=== PATIENT | male | born 1965 | race Caucasian/White ===

== ENCOUNTER 2020-05-21 16:21 | Emergency (ER) | payer MEDICARE, MEDICAID, SELFPAY ==
[2020-05-21 16:27] VITALS: BP 126/87; PULSE 77; RESP 18; TEMP 36.7; O2SAT 99; BMI 20.9
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
[2020-05-21] MEDS: HYDROcodone-acetaminophen 5-325 mg Tablet 2 TAB PO (18:57)
[2020-05-21 20:00] VITALS: BP 108/68; PULSE 78; RESP 17; O2SAT 98
--- NOTE | 2020-05-22 09:44 | DCPLANNER ---
apartment assistant manager had message to schedule a follow up appointment for patient with ortho. apartment assistant manager called the ortho clinic, spoke with Pat, gave clinic patients information. apartment assistant manager was told that patients information would be printed and reviewed. Clinic will call patient with appointment information.
--- NOTE | 2020-05-23 12:57 | DCPLANNER ---
Patient has a follow up appointment scheduled for Tuesday, May 26, [address] at 8:[address] Ricks. Clinic will call patient with appointment information.
--- NOTE | 2020-06-01 07:46 | DCPLANNER ---
Patient had an appointment scheduled for 05.26.20 with ortho - patient did attend appointment.
== END 2020-05-21 20:02 | disposition home or self-care (01) ==
PROVIDERS: Emergency Provider Physician Assistant
DX: S42.035A Nondisplaced fracture of lateral end of left clavicle, initial encounter for closed fracture (principal); V29.9XXA Motorcycle rider (driver) (passenger) injured in unspecified traffic accident, initial encounter
CPT/HCPCS: 12345; 73030; 99282; 99283; L3650

== ENCOUNTER → 2020-06-27 10:31 | Outpatient (BNVA) | payer MEDICARE, MEDICAID, SELFPAY | PROVIDERS: Visit Provider Orthopaedic Surgery | DX: Z47.89 Encounter for other orthopedic aftercare (principal); S42.035D Nondisplaced fracture of lateral end of left clavicle, subsequent encounter for fracture with routine healing; V29.9XXD Motorcycle rider (driver) (passenger) injured in unspecified traffic accident, subsequent encounter | CPT/HCPCS: 73000 ==

== ENCOUNTER → 2020-07-26 10:22 | Outpatient (BNVA) | payer MEDICARE, MEDICAID, SELFPAY | PROVIDERS: Visit Provider Orthopaedic Surgery | DX: S42.035A Nondisplaced fracture of lateral end of left clavicle, initial encounter for closed fracture (principal) | CPT/HCPCS: 73000 ==

== ENCOUNTER → 2020-11-10 09:29 | Outpatient (BNVA) | payer MEDICARE, MEDICAID, SELFPAY | PROVIDERS: Visit Provider Psychiatry & Neurology Psychiatry | DX: F32.9 Major depressive disorder, single episode, unspecified (principal) | CPT/HCPCS: 90792 ==

== ENCOUNTER → 2021-04-19 10:21 | Outpatient (BNVA) | payer MEDICARE, MEDICAID, SELFPAY | PROVIDERS: Visit Provider Psychiatry & Neurology Psychiatry | DX: F32.9 Major depressive disorder, single episode, unspecified (principal); S06.9X9A Unspecified intracranial injury with loss of consciousness of unspecified duration, initial encounter; F10.10 Alcohol abuse, uncomplicated | CPT/HCPCS: 99214 ==

== ENCOUNTER 2022-08-30 19:46 | Inpatient (IN) | payer MEDICARE, MEDICAID, SELFPAY ==
[2022-08-30 19:50] VITALS: BP 123/77; PULSE 97; RESP 30; TEMP 36.5; O2SAT 95
--- NOTE | 2022-08-30 19:57 | ECG_ITS ---
[facility] Test Date: 2022-08-30 Pat Name: Ramesh Carter Department: Room: Gender: Male Hospice Care Consultant: : 1955-11-28 Requested By: Filomena Ordonez Order Number: [id number] Jennifer MD: Abraham Zurita M.D. Measurements Intervals [place] Rate: 99 P: 78 [place]: 139 QRS: 66 QRSD: 81 T: 59 QT: 296 QTc: 381 Interpretive Statements SINUS RHYTHM MODERATE ST DEPRESSION [0.05+ mV ST DEPRESSION] No previous ECG available for comparison Electronically Signed On 08-31-2022 16:40:16 HELICOPTER DISPATCHER by Abraham Zurita M.D. [id number] f
--- NOTE | 2022-08-30 20:08 | XRR_ITS ---
PROCEDURE INFORMATION: Exam: XR Chest Exam date and time: 08/30/2022 8:20 PM Age: 66 years old Clinical indication: Cough and shortness of breath and other: Fluid coming out of trach tube; Additional info: SOB TECHNIQUE: Imaging protocol: Radiologic exam of the chest. Views: 1 view. COMPARISON: CR XR chest 2V* [id number] 10/13/2018 2:37 PM FINDINGS: Tubes, catheters and devices: Tracheostomy tube is stable in position with the tip at the level of the sternoclavicular joints. Lungs: Interval development of ill-defined interstitial and alveolar opacities in the mid and lower lungs bilaterally. Findings are concerning for pneumonia, including atypical organisms. Pleural spaces: No pleural effusion. No pneumothorax. Heart/Mediastinum: The cardiac silhouette and mediastinal contours are unremarkable. Bones/joints: Unremarkable for age. XR/XR chest 1V portable [id number] IMPRESSION: 1. Interval development of ill-defined interstitial and alveolar opacities in the mid and lower lungs bilaterally. Findings are concerning for pneumonia, including atypical organisms. Recommend clinical correlation. Recommend followup chest imaging to insure resolution of these findings. 2. Incidental/nonacute findings are listed in the report.
--- NOTE | 2022-08-30 20:15 | W.ED.SOB ---
HPI - SOB/Dyspnea General: Chief Complaint: Shortness of Breath/Dyspnea Stated Complaint: coughing breathing difficulties Time Seen by Provider: 08/30/22 20:01 Source: patient Mode of arrival: ambulatory Limitations: no limitations History of Present Illness: HPI Narrative: 66-year-old male who has a history of COPD is a longtime smoker and has had a history of a trach states that over the last 2 weeks has been having increasing shortness of breath he is tachypneic here had a cough denies any fever denies any worsening improving factors. Associated symptoms: Deny abdominal pain, chest pain, fever(s), nausea or vomiting Review of Systems Const: Denies: fever(s), chills, body aches or change in appetite Eyes: Denies: blurry vision or eye discomfort ENMT: Denies: throat pain or dental pain Card: Denies: chest pain Resp: Reports: dyspnea and non-productive cough GI: Denies: abdominal pain, nausea, vomiting or diarrhea : Denies: dysuria Musc: Denies: neck pain or back pain Skin/Breast: Denies: rash Neuro: Denies: headache(s) Psych: Denies: depression Gurpreet/Lymph: Denies: easy bruising All/Imm: Denies: urticaria PFSH ED PFSH: Medical History Alcohol abuse MDD (major depressive disorder) Traumatic brain injury Social History Smoking and tobacco status: former smoker Smoking risk assessment/counseling performed?: No Alcohol intake: former Desire information about alcohol rehabilitation?: No Counseling given: No Desire information about substance/drug rehabilitation?: No Counseling given: No Adopted: No Caregiver/support person: No Lives independently: Yes Current occupational status: disabled Current gender identity: Male Physical Exam Const: COMMON NORMALS: patient oriented x3 HENMT: COMMON NORMALS: normocephalic and atraumatic HEAD & SCALP: normocephalic and atraumatic Eye: COMMON NORMALS: Equal, round and reactive pupils present and EOMs intact bilaterally PUPIL: Yes Equal, round and reactive pupils present Neck/C-Spine: COMMON NORMALS: full ROM and supple Chest: COMMONS NORMALS: normal inspection of the chest and normal palpation of entire chest wall Resp: COMMON NORMALS: No retractions and No use of accessory muscles EFFORT & INSPECTION: Yes tachypneic Cardio: COMMON NORMALS: regular rate, regular rhythm and No murmurs present (Cardio) RATE: regular rate RHYTHM: regular rhythm GI: COMMON NORMALS: Normal to inspection, nondistended, normoactive bowel sounds present, Soft to palpation, non-tender and no masses PALPATION: Yes Soft to palpation Extremity: COMMON NORMALS: normal to inspection and full ROM Neuro: COMMON NORMALS: patient oriented x3, moves all extremities and no focal motor deficits Psych: COMMON NORMALS: mental status grossly normal, Normal thought process present and cooperative THOUGHT PROCESS: Normal thought process present Skin: COMMON NORMALS: no rashes or lesions noted and no wounds GENERAL SKIN EXAM: no rashes or lesions noted Course Vital Signs: Vital signs: Vital Signs Temperature 97.7 F 08/30/22 19:50 Pulse Rate 100 08/30/22 21:31 Respiratory Rate 18 08/30/22 21:27 Blood Pressure 133/69 08/30/22 20:31 Pulse Oximetry 93 08/30/22 21:27 Oxygen Delivery Me thod 08/30/22 21:27 MDM - SOB/Dyspnea Medical Decision Making Patient presents here with shortness of breath he does have influenza he also has acute kidney injury likely from dehydration his potassium is normal I spoke to the hospitalist who will admit nephrology is consulted Lab Data 08/30/22 20:30 08/30/22 20:30 Labs/Radiology: Radiology Impressions Chest X-Ray 08/30/22 20:08 IMPRESSION: 1. Interval development of ill-defined interstitial and alveolar opacities in the mid and lower lungs bilaterally. Findings are concerning for pneumonia, including atypical organisms. Recommend clinical correlation. Recommend followup chest imaging to insure resolution of these findings. 2. Incidental/nonacute findings are listed in the report. Laboratory Results WBC 5.8 10^3/uL (4.0-10.0) 08/30/22 20:30 RBC 4.50 10^6/uL (4.1-5.3) 08/30/22 20:30 Hgb 13.1 g/dL (11.7-16.6) 08/30/22 20:30 Hct 39.1 % (42.0-52.0) L 08/30/22 20:30 MCV 86.9 fl (80-94) 08/30/22 20:30 MCH 29.1 pg (28.0-34.0) 08/30/22 20: MCHC 33.5 g/dL (30.0-36.0) 08/30/22 20:30 RDW 14.6 % (12.1-15.1) 08/30/22 20:30 Plt Count 239 10^3/cmm (130-400) 08/30/22 20: MPV 10.8 fL (7.4-10.4) H 08/30/22 20:30 Neut % (Auto) 83.8 % 08/30/22 20: Lymph % (Auto) 5.0 % 08/30/22 20: Toole % (Auto) 9.5 % 08/30/22 20: Eos % (Auto) 0.0 % 08/30/22:30 Baso % (Auto) 0.7 % 08/30/22: Neut # (Auto) 4.86 10^3/uL (1.8-7.7) 08/30/22 20:30 Lymph # (Auto) 0.3 10^3/uL (0.8-4.8) L 08/30/22 20:30 Toole # (Auto) 0.6 10^3/uL (0.2-0.9) 08/30/22 20:30 Eos # (Auto) 0.0 10^3/uL (0.0-0.8) 08/30/22 20:30 Baso # (Auto) 0.0 10^3/uL (0.0-0.1) 08/30/22 20:30 Nucleated RBC % (auto) 0 % 08/30/22: Nucleated RBCs # 0.0 /100WBC 08/30/22 20:30 Sodium 129 mmol/L (136-145) L 08/30/22 20: Potassium 4.5 mmol/L (3.5-5.1) 08/30/22 20:30 Chloride 91 mmol/L (98-107) L 08/30/22 20:30 Carbon Dioxide 18 mmol/L (22-29) L 08/30/22 20: Anion Gap 24.5 (5-19) H 08/30/22 20:30 BUN 85 mg/dL (8-23) H* 08/30/22 20:30 Creatinine 6.9 mg/dL (0.7-1.2) H* 08/30/22 20:30 GFR Calculation 8.0 mL/min (90-130) L 08/30/22 20:30 Glucose 124 mg/dL (65-115) H 08/30/22 20:30 Calculated Osmolality 295 mOsm/kg (285-295) 08/30/22 20:30 Calcium 9.2 mg/dL (8.5-10.5) 08/30/22 20:30 Total Bilirubin 0.4 mg/dL (0.15-1.2) 08/30/22 20:30 AST 80 U/L (0-40) H 08/30/22 20:30 ALT 32 U/L (0-41) 08/30/22 20:30 Alkaline Phosphatase 62 U/L (40-130) 08/30/22 20:30 NT-Pro-B Natriuret Pep 1548 pg/mL (0-125) H 08/30/22 20:30 Total Protein 8.2 g/dL (6.6-8.7) 08/30/22 20:30 Albumin 3.1 g/dL (3.5-5.2) L 08/30/22 20:30 Globulin 5.1 g/dL (1.3-4.6) H 08/30/22 20:30 Influenza Type A Ag positive (Negative) H 08/30/22 20:30 Influenza Type B Ag negative (Negative) 08/30/22 20:30 EKG Data EKG 1: I personally reviewed and interpreted this EKG as follows: EKG Interpretation Date: 08/30/22 EKG interpretation time: 19:54 Interpretation: nsr hr [address] or t wave abnormalities qrs 81 qtc 353 Critical Care Time Critical Care Time: Critical Care Time: Yes Total Critical Care Time: 40 Attestation: The high probability of a clinically significant, sudden or life threatening deterioration of the patient's resp system(s) required my full and direct attention, intervention and personal management. The critical care time is as shown. 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
[2022-08-30 20:31] VITALS: BP 133/69; PULSE 90; RESP 26; O2SAT 93
[2022-08-30 20:42] LABS: Basophils % 0.7 %; Hematocrit 39.1 % (42.0-52.0); Hemoglobin 13.1 g/dL (11.7-16.6); Lymphocytes # 0.3 10^3/uL (0.8-4.8); Mean Corpuscular HGB Conc 33.5 g/dL (30.0-36.0); Mean Corpuscular Hemoglobin 29.1 pg (28.0-34.0); Mean Corpuscular Volume 86.9 fl (80-94); Mean Platelet Volume 10.8 fL (7.4-10.4); Monocytes # 0.6 10^3/uL (0.2-0.9); Monocytes % 9.5 %; Neutrophils # 4.86 10^3/uL (1.8-7.7); Neutrophils % 83.8 %; Nucleated Red Blood Cells % 0 %; Platelet Count 239 10^3/cmm (130-400); Red Cell Distribution Width 14.6 % (12.1-15.1); White Blood Count 5.8 10^3/uL (4.0-10.0)
[2022-08-30 20:48] LABS: Influenza A by IFA positive (Negative); Influenza B by IFA negative (Negative)
[2022-08-30 21:11] LABS: Alanine Aminotransferase 32 U/L (0-41); Albumin Level 3.1 g/dL (3.5-5.2); Alkaline Phosphatase 62 U/L (40-130); Anion Gap 24.5 (5-19); Aspartate Amino Transferase 80 U/L (0-40); Calcium 9.2 mg/dL (8.5-10.5); Carbon Dioxide 18 mmol/L (22-29); Chloride 91 mmol/L (98-107); Globulin 5.1 g/dL (1.3-4.6); Glucose 124 mg/dL (65-115); NT Pro B Type Natriuretic Pept 1548 pg/mL (0-125); Osmolality Calculated 295 mOsm/kg (285-295); Potassium 4.5 mmol/L (3.5-5.1); Sodium 129 mmol/L (136-145); Total Bilirubin 0.4 mg/dL (0.15-1.2); Total Protein 8.2 g/dL (6.6-8.7)
[2022-08-30 21:19] LABS: Blood Urea Nitrogen 85 mg/dL (8-23)
[2022-08-30] MEDS: ipratropium-albuterol 3 mL Neb INHALATION (21:25)
[2022-08-30 21:27] VITALS: PULSE 99; RESP 18; O2SAT 93
[2022-08-30 21:31] VITALS: PULSE 100
[2022-08-30 21:36] LABS: Slide Review Slide Review Perform
[2022-08-30] MEDS: sodium chloride 0.9% 1,000 ML 999 ML IV (21:53)
[2022-08-30] MEDS: cefTRIAXone 1,000 MG in sodium chloride 0.9% (plus) 50 ML 100 MG IV (21:54)
[2022-08-30] MEDS: azithromycin 500 MG in sodium chloride 0.9% 250 ML 250 MG IV (22:17)
[2022-08-30 22:18] VITALS: BP 117/97; PULSE 96; RESP 16; O2SAT 94
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
[2022-08-31] VITALS (9 sets, daily range): BP systolic 90–116; BP diastolic 51–73; PULSE 92–101; RESP 16–28; TEMP 36.5–37.7; O2SAT 90–97
[2022-08-31] MEDS: heparin 5,000 unit/mL INJ 1 mL 5000 UNIT SUBCUT ×2 (03:43→15:33)
[2022-08-31] MEDS: linezolid premix 600 MG/300 ML PREMIX 300 MG IV ×2 (03:45→20:09)
[2022-08-31 04:30] LABS: Add Urine Microscopic? YES; Bilirubin Urine Neg (Negative); Blood Urine 3+ (Negative); Glucose Urine UA Norm (Normal); Ketones Urine Negative (Negative); Leukocyte Esterase Urine Negative (Negative); Nitrate Urine Negative (Negative); Protein Urine 3+ (Negative); Specific Gravity, Urine 1.015 (1.005-1.030); Urine Appearance SL Hazy (CLEAR); Urine Color Yellow (Yellow); Urobilinogen Urine Neg (Negative); pH Urine 5 (5-7)
[2022-08-31 04:32] LABS: Add Urine Culture? No; Amorphous Sediment Urine 3+ /hpf; Bacteria Urine TRACE /hpf; RBC Urine 0-4 /hpf (0-2); WBC Urine 0-4 /hpf (0-5)
[2022-08-31] MEDS: piperacillin-tazobactam 3.375 GM in sodium chloride 0.9% (plus) 50 ML IV ×2 (05:06→15:30)
[2022-08-31 05:12] LABS: Creatinine Urine, Random 126 mg/dL (39-259); Potassium, Radom Urine 42 mmol/L; Urine Creatinine 122 mg/dL (39-259); Urine Random Chloride 21 mmol/L; Urine Random Sodium 33 mmol/L
[2022-08-31 05:16] LABS: Urine Protein Random 156 mg/dL
[2022-08-31 05:28] LABS: Microalbum Creatinine Ratio Ur 587 mg/dL (0-20); Microalbumin Random Urine 74 ug/dL (0-20)
[2022-08-31 05:29] LABS: Basophils # 0.1 10^3/uL (0.0-0.1); Basophils % 1.1 %; Hematocrit 34.1 % (42.0-52.0); Hemoglobin 11.6 g/dL (11.7-16.6); Lymphocytes # 0.5 10^3/uL (0.8-4.8); Lymphocytes % 8.5 %; Mean Corpuscular Hemoglobin 29.3 pg (28.0-34.0); Mean Corpuscular Volume 86.1 fl (80-94); Monocytes # 0.4 10^3/uL (0.2-0.9); Monocytes % 7.2 %; Neutrophils # 4.43 10^3/uL (1.8-7.7); Neutrophils % 81.5 %; Nucleated Red Blood Cells % 0 %; Platelet Count 217 10^3/cmm (130-400); Red Blood Count 3.96 10^6/uL (4.1-5.3); Red Cell Distribution Width 14.6 % (12.1-15.1); White Blood Count 5.4 10^3/uL (4.0-10.0)
[2022-08-31 05:47] LABS: Lactic Sepsis W/Reflex 1.5 mmol/L (0.5-2.2)
[2022-08-31 05:59] LABS: Estmated Average Glucose 126
[2022-08-31 06:00] LABS: Procalcitonin 93.51 ng/mL (0-0.5); Thyroid Stimulating Hormone 0.73 uIU/mL (0.27-4.20)
[2022-08-31 06:11] LABS: Alanine Aminotransferase 27 U/L (0-41); Albumin Level 2.7 g/dL (3.5-5.2); Alkaline Phosphatase 56 U/L (40-130); Aspartate Amino Transferase 67 U/L (0-40); Calcium 8.6 mg/dL (8.5-10.5); Carbon Dioxide 16 mmol/L (22-29); Chloride 93 mmol/L (98-107); Globulin 4.3 g/dL (1.3-4.6); Glomerular Filtration Rate 7.9 mL/min (90-130); Glucose 157 mg/dL (65-115); Osmolality Calculated 295 mOsm/kg (285-295); Phosphorus 4.6 mg/dL (2.5-4.5); Sodium 127 mmol/L (136-145); Total Bilirubin 0.4 mg/dL (0.15-1.2)
[2022-08-31 06:16] LABS: Blood Urea Nitrogen 90 mg/dL (8-23)
[2022-08-31 06:34] LABS: Glucose Point of Care 113 mg/dL (70-110)
--- NOTE | 2022-08-31 06:42 | P.CONIM_ITS ---
Providers/Reason For Consult Consulting Physician/Specialty*: Janny Easton DO, telenephrology Reason for Consult*: Acute kidney injury Requesting Physician: Mell Ramirez MD Attending Physician: Mell Ramirez MD History of Present Illness History of Present Illness Ramesh Carter is a 66 year old male presented from home for evaluation of shortness of breath and cough. States he has been sick for 2 weeks, decreased oral intake. Review of Systems Const: Reports: fatigue Resp: Reports: dyspnea, productive cough and other (trach) : Reports: other (no urinary complaints) Medications/Allergies Home Medications Medication Instructions Recorded Confirmed Last Taken Type No Known Home Medications 08/31/22 08/31/22 Unknown History Allergies Allergy/AdvReac Type Severity Reaction Status Date / Time No Known Allergies Allergy Verified 07/17/22 09:33 Current Medications Generic Name Dose Route Start Last Admin Trade Name Freq PRN Reason Stop Dose Admin Heparin Sodium (Porcine) 5,000 unit 08/31/22 03:15 08/31/22 03:43 Heparin 5,000 Unit/Ml Inj 1 Ml SUBCUT 5,000 unit Q12H CORKY Administration Linezolid 600 mg in 300 mls @ 300 mls/hr 08/31/22 03:30 08/31/22 05:05 Zyvox Premix IV Infused Q12H CORKY Infusion Protocol Piperacillin Sod/Tazobactam 50 mls @ 12.5 mls/hr 08/31/22 03:30 08/31/22 05:06 Sod 3.375 gm/ Sodium Chloride IV 12.5 mls/hr Q12H CORKY Administration Protocol PFSH Acute PFSH: Medical History Alcohol abuse MDD (major depressive disorder) Traumatic brain injury Social History Smoking and tobacco status: former smoker Smoking risk assessment/counseling performed?: No Alcohol intake: former Desire information about alcohol rehabilitation?: No Counseling given: No Desire information about substance/drug rehabilitation?: No Counseling given: No Adopted: No Caregiver/support person: No Lives independently: Yes Current occupational status: disabled Current gender identity: Male Vitals/I&O/Wt Last Vital Signs Temp 99.4 F 08/31/22 01:20 Pulse 95 08/31/22 01:20 Resp 28 H 12/10/22 01:20 BP 111/73 08/31/22 01:20 Pulse Ox 94 08/31/22 01:20 O2 Del Method 08/31/22 00:46 08/30/22 08/30/22 08/31/22 14:59 22:59 06:59 Intake Total 2200 / 2200 Balance 2200 / 2200 Weight last 48 hrs Weight 61.235 kg Physical Exam Const: COMMON NORMALS: alert; negative for well nourished NUTRITIONAL APPEARANCE: thin Neck/C-Spine: OTHER: + trach Extremity: GENERAL: No edema Neuro: SENSORIUM/ORIENTATION: Yes alert Urinary Catheter Management: Wan: Cath Placed During This Visit: yes Reason for Continuing Indwelling Catheter: Acute Urinary Retention or Obstruction Urinary Catheter Date of Insertion: 08/31/22 Urinary Catheter Time of Insertion: 03:55 Data 08/31/22 05:16 08/31/22 05:16 Other Labs: CK 1590 FeNa < 1% Ca 8.6, albumin 2.7, Edson Ca 9.8, phos 4.6 Micro: Microbiology 08/31/22 04:00 Legionella Urinary Antigen - Final Urine Catheterized 08/30/22 21:32 Blood Culture - Preliminary Blood SPECIMEN COLLECTED 08/30/22 21:39 Blood Culture - Preliminary Blood SPECIMEN COLLECTED CXR: Radiologist's impression: Interval development of ill-defined interstitial and alveolar opacities in the mid and lower lungs bilaterally. Findings are concerning for pneumonia, including atypical organisms. Recommend clinical correlation.Recommend followup chest imaging to insure resolution of these findings. ? Other data: written and verbal consent obtained for telemedicine visit Seen via telemedicine with assistance of RN at bedside A&P Assessment and plan (1) Acute kidney injury: Plan 1. Acute kidney injury: volume depletion, mild rhabdomyolysis. Baseline renal function not available 2. Influenza, pneumonia 3. Hypovolemic hyponatremia 4. Increase anion gap metabolic acidosis recommend: IVF hydration NSS 100 ml/hr, oral sodium bicarbonate. Renal ult rasound. 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
--- NOTE | 2022-08-31 06:45 | USR_ITS ---
PROCEDURE INFORMATION: Exam: US Retroperitoneal; Complete; Kidneys and Bladder Exam date and time: 08/31/2022 2:59 PM Age: 66 years old Clinical indication: Abnormal findings; Abnormal lab test; Abnormal kidney function lab tests; Additional info: [place] TECHNIQUE: Imaging protocol: Real-time ultrasound of the retroperitoneum with image documentation. Complete exam focused on the kidneys and bladder. COMPARISON: No relevant prior studies available. FINDINGS: Right kidney: Normal. No stones. No hydronephrosis. Left kidney: Normal. No stones. No hydronephrosis. Urinary bladder: Unremarkable. US/US renal BI* [id number] IMPRESSION: Unremarkable kidneys and bladder.
[2022-08-31 07:33] LABS: Creatine Phosphokinase 1590 U/L (39-308)
[2022-08-31 07:59] LABS: CKMB 11.2 ng/mL (0-10.4)
[2022-08-31 08:00] LABS: CKMB Relative Index 0.7 % (0.0-5.3)
[2022-08-31] MEDS: sodium chloride 0.9% 1,000 ML 100 ML IV (09:09)
--- NOTE | 2022-08-31 09:57 | PM.PN ---
Subjective Subjective: Patient endorses shortness of breath and cough. Endorses generalized malaise, fatigue, and weakness. Denies abdominal pain, nausea or emesis. Medications: Reviewed: Yes Vitals/I&O/Wt Last Vital Signs Temp 97.7 F 08/31/22 08:00 Pulse 94 08/31/22 08:00 Resp 22 H 08/31/22 08:00 BP 97/54 08/31/22 08:00 Pulse Ox 97 08/31/22 08:00 O2 Del Method 08/31/22 08:00 08/30/22 08/31/22 08/31/22 22:59 06:59 14:59 Intake Total 2200 / 2200 50 / 50 Balance 2200 / 2200 50 / 50 Weight last 48 hrs Weight 61.235 kg Physical Exam Narrative: General: Patient is awake. Frail appearing. Appears ill. In moderate respiratory distress. Head: Normocephalic. Atraumatic. EOM intact. Neck: No JVD. Tacheostomy. Cardiovascular: No gallops. No murmurs. Tachycardic. Lungs: Tracheostomy. In moderate respiratory distress. Cough present. Bilateral rhonchi. No wheezing. Skin: No jaundice. No rashes. Abdomen: Normal bowel sounds, abdomen soft and nontender. Genito Urinary: Genital exam not performed since complaints not related. Rectal: Rectal exam not performed since no symptoms indicated blood loss. Extremities: No cyanosis or clubbing. Musculoskeletal: Poor muscular development. Neurological: Moves all 4 extremities. No myoclonus. Urinary Catheter Management: Wan: Cath Placed During This Visit: yes Reason for Continuing Indwelling Catheter: Acute Urinary Retention or Obstruction Urinary Catheter Date of Insertion: 08/31/22 Urinary Catheter Time of Insertion: 03:55 Data 08/31/22 05:16 08/31/22 05:16 Micro: Microbiology 08/31/22 04:00 Legionella Urinary Antigen - Final Urine Catheterized 08/30/22 21:32 Blood Culture - Preliminary Blood SPECIMEN COLLECTED 08/30/22 21:39 Blood Culture - Preliminary Blood SPECIMEN COLLECTED A&P Assessment and plan (1) Acute kidney injury: Severe JOSÉ LUIS Avoid nephrotoxins Renally dose medications Nephrology consultation Strict I&Os Renal ultrasound (2) Pneumonia: Bilateral community acquired pneumonia Tracheostomy Continue Zosyn Continue azithromycin Continue Zyvox Follow up MRSA Follow up legionella ag Follow up strep ag (3) Influenza: Droplet precautions Tamiflu dose is currently unavailable (4) Hyponatremia: Continue to monitor (5) Alcohol abuse: Monitor for withdrawal (6) Traumatic brain injury: Mentation seems to be at baseline (7) MDD (major depressive disorder): Continue outpatient treatment Plan DVT ppx: Heparin Code status: Full Code Attestations Medical Necessity Statement*: Patient requires ongoing hospitalization for management of severe JOSÉ LUIS, pneumonia, and flu with expected hospitalization to cross 2 midnights. 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
[2022-08-31] MEDS: ipratropium-albuterol 3 mL Neb INHALATION (11:58)
[2022-08-31] MEDS: sodium bicarbonate 650 mg Tablet PO ×2 (15:33→20:53)
[2022-08-31] MEDS: azithromycin 500 MG in sodium chloride 0.9% 250 ML 250 MG IV (22:25)
[2022-09-01] VITALS (9 sets, daily range): BP systolic 109–132; BP diastolic 70–83; PULSE 78–108; RESP 16–24; TEMP 36.6–37.1; O2SAT 92–96
[2022-09-01] MEDS: heparin 5,000 unit/mL INJ 1 mL 5000 UNIT SUBCUT ×2 (03:19→17:29)
[2022-09-01] MEDS: piperacillin-tazobactam 3.375 GM in sodium chloride 0.9% (plus) 50 ML IV ×2 (03:58→17:28)
[2022-09-01 06:13] LABS: Basophils # 0.1 10^3/uL (0.0-0.1); Basophils % 0.8 %; Hematocrit 36.6 % (42.0-52.0); Hemoglobin 11.8 g/dL (11.7-16.6); Lymphocytes # 0.7 10^3/uL (0.8-4.8); Lymphocytes % 7.4 %; Mean Corpuscular HGB Conc 32.2 g/dL (30.0-36.0); Mean Corpuscular Hemoglobin 28.8 pg (28.0-34.0); Mean Corpuscular Volume 89.3 fl (80-94); Mean Platelet Volume 11.7 fL (7.4-10.4); Monocytes # 0.8 10^3/uL (0.2-0.9); Monocytes % 9.4 %; Neutrophils # 7.13 10^3/uL (1.8-7.7); Neutrophils % 81.1 %; Nucleated Red Blood Cells % 0 %; Platelet Count 210 10^3/cmm (130-400); Red Cell Distribution Width 15.2 % (12.1-15.1); White Blood Count 8.8 10^3/uL (4.0-10.0)
[2022-09-01 06:38] LABS: Alanine Aminotransferase 26 U/L (0-41); Albumin Level 2.7 g/dL (3.5-5.2); Alkaline Phosphatase 62 U/L (40-130); Anion Gap 19.6 (5-19); Aspartate Amino Transferase 51 U/L (0-40); Calcium 8.7 mg/dL (8.5-10.5); Carbon Dioxide 18 mmol/L (22-29); Chloride 93 mmol/L (98-107); Globulin 4.4 g/dL (1.3-4.6); Glomerular Filtration Rate 8.4 mL/min (90-130); Glucose 101 mg/dL (65-115); Magnesium 2.3 mg/dL (1.7-2.3); Osmolality Calculated 294 mOsm/kg (285-295); Phosphorus 6.4 mg/dL (2.5-4.5); Potassium 3.6 mmol/L (3.5-5.1); Sodium 127 mmol/L (136-145); Total Bilirubin 0.2 mg/dL (0.15-1.2); Total Protein 7.1 g/dL (6.6-8.7)
[2022-09-01 06:45] LABS: Blood Urea Nitrogen 95 mg/dL (8-23); Creatine Phosphokinase 793 U/L (39-308)
--- NOTE | 2022-09-01 07:10 | P.PN_ITS ---
Subjective Subjective: up walking in room. dean was removed this AM. he has voided since states he wants to be discharged home today Vitals/I&O/Wt Last Vital Signs Temp 97.8 F 09/01/22 04:00 Pulse 93 09/01/22 04:00 Resp 17 09/01/22 04:00 BP 123/80 09/01/22 04:00 Pulse Ox 93 09/01/22 04:00 O2 Del Method 09/01/22 01:23 08/31/22 09/01/22 09/01/22 22:59 06:59 14:59 Intake Total 290 / 1060 Output Total 400 / 400 Balance 290 / 1060 -400 / 660 Weight last 48 hrs Weight 61.235 kg Physical Exam Const: COMMON NORMALS: no acute distress and alert Neck/C-Spine: OTHER: + trach Resp: COMMON NORMALS: normal respiratory effort OTHER: rhonchi Cardio: COMMON NORMALS: regular rate and regular rhythm RATE: regular rate RHYTHM: regular rhythm Extremity: GENERAL: No edema Neuro: SENSORIUM/ORIENTATION: Yes alert Urinary Catheter Management: Dean: Cath Placed During This Visit: yes Reason for Continuing Indwelling Catheter: Acute Urinary Retention or Obstruction Urinary Catheter Date of Insertion: 08/31/22 Urinary Catheter Time of Insertion: 03:55 Data 09/01/22 05:56 09/01/22 05:56 Other Labs: Ca 8.7, phos 6.4, Mg 2.3 CK 793, prior 1590 08/31/22: FeNa < 1%, urinalysis 3+ protein, urine albumin/Cr ratio 587 Ca 8.6, albumin 2.7, Edson Ca 9.8, phos 4.6 Micro: Microbiology 08/30/22 21:32 Blood Culture - Preliminary Blood NEGATIVE TO DATE 08/30/22 21:39 Blood Culture - Preliminary Blood NEGATIVE TO DATE 08/31/22 01:00 Gram Stain - Final Sputum - Expectorated Sputum 08/31/22 04:00 MRSA Culture - Final Nose 08/31/22 04:00 Bacterial Antigens - Final Urine,Clean Catch 08/31/22 04:00 Legionella Urinary Antigen - Final Urine Catheterized CXR: Radiologist's impression: Interval development of ill-defined interstitial and alveolar opacities in the mid and lower lungs bilaterally. Findings are concerning for pneumonia, including atypical organisms. Recommend clinical correlation.Recommend followup chest imaging to insure resolution of these findings. ? Other data: Seen via telemedicine with assistance of RN at bedside A&P Assessment and plan (1) Acute kidney injury: Plan 1. Acute kidney injury: + volume depletion, mild rhabdomyolysis, Ck improving, good urine output, . Baseline renal function not available 2. Influenza, pneumonia 3. Hypovolemic hyponatremia 4. Increase anion gap metabolic acidosis recommend: continue IVF hydration NSS 100 ml/hr, oral sodium bicarbonate. adjust meds eGFR < 15 ml/min. Will proceed with GN workup. I explained to patient that he is not medically stable for discharge. If renal function does not significantly improve, he will need dialysis to survive. 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
[2022-09-01] MEDS: sodium chloride 0.9% 1,000 ML 100 ML IV ×2 (07:45→17:29)
[2022-09-01] MEDS: sodium bicarbonate 650 mg Tablet PO ×4 (07:45→20:41)
[2022-09-01] MEDS: linezolid premix 600 MG/300 ML PREMIX 300 MG IV (07:46)
--- NOTE | 2022-09-01 08:13 | PC.NURSE ---
Pt gave verbal permission to give information to his brother.
--- NOTE | 2022-09-01 11:53 | PM.PN ---
Subjective Subjective: Patient endorses continued coughing. Denies fevers, chills, nausea, or emesis. Medications: Reviewed: Yes Vitals/I&O/Wt Last Vital Signs Temp 98.8 F 09/01/22 08:00 Pulse 94 09/01/22 09:18 Resp 20 H 09/01/22 09:18 BP 124/76 09/01/22 08:00 Pulse Ox 96 09/01/22 09:18 O2 Del Method 09/01/22 09:18 08/31/22 09/01/22 09/01/22 22:59 06:59 14:59 Intake Total 1590 / 2360 Output Total 400 / 400 1150 / 1150 Balance 1590 / 2360 -400 / 1960 -1150 / -1150 Weight last 48 hrs Weight 61.235 kg Physical Exam Narrative: General: Patient is awake. Frail appearing. Appears ill. Head: Normocephalic. Atraumatic. EOM intact. Neck: No JVD. Tacheostomy. Cardiovascular: No gallops. No murmurs. Lungs: Tracheostomy. Cough present. Bilateral rhonchi. No wheezing. Skin: No jaundice. No rashes. Abdomen: Normal bowel sounds, abdomen soft and nontender. Genito Urinary: Genital exam not performed since complaints not related. Rectal: Rectal exam not performed since no symptoms indicated blood loss. Extremities: No cyanosis or clubbing. Musculoskeletal: Poor muscular development. Neurological: Moves all 4 extremities. No myoclonus. Urinary Catheter Management: Wan: Cath Placed During This Visit: yes Reason for Continuing Indwelling Catheter: Acute Urinary Retention or Obstruction Urinary Catheter Date of Insertion: 08/31/22 Urinary Catheter Time of Insertion: 03:55 Data 09/01/22 05:56 09/01/22 05:56 Micro: Microbiology 08/30/22 21:32 Blood Culture - Preliminary Blood NEGATIVE TO DATE 08/30/22 21:39 Blood Culture - Preliminary Blood NEGATIVE TO DATE 08/31/22 01:00 Gram Stain - Final Sputum - Expectorated Sputum 08/31/22 04:00 MRSA Culture - Final Nose 08/31/22 04:00 Bacterial Antigens - Final Urine,Clean Catch A&P Assessment and plan (1) Acute kidney injury: Severe JOSÉ LUIS Mild rhabdomyolysis Avoid nephrotoxins Renally dose medications Nephrology consultation Strict I&Os Renal ultrasound unremarkable Baseline renal function unknown Continue IV fluids Continue sodium bicarb (2) Pneumonia: Bilateral community acquired pneumonia Tracheostomy Continue Zosyn Continue azithromycin Continue Zyvox MRSA negative Urine legionella and strep negative (3) Influenza: Droplet precautions Tamiflu dose is currently unavailable (4) Hyponatremia: Continue to monitor (5) Alcohol abuse: Monitor for withdrawal (6) Traumatic brain injury: Mentation seems to be at baseline (7) MDD (major depressive disorder): Continue outpatient treatment Plan DVT ppx: Heparin Code status: Full Code Attestations Medical Necessity Statement*: Patient requires ongoing hospitalization for management of severe JOSÉ LUIS, pneumonia, and flu. 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
--- NOTE | 2022-09-01 12:14 | PC.NURSE ---
It was reported to this nurse that patient is refusing lab draws at this time.
[2022-09-01 12:40] LABS: Complement C3 131 mg/dL (90-180)
[2022-09-01 12:45] LABS: Hepatitis C Virus Antibody Non-Reactive (Nonreactive)
--- NOTE | 2022-09-01 13:20 | PC.NURSE ---
Patient wanted the dean cath to be removed and was threatening to leave AMA. Dean was removed and this nurse persuaded patient to stay. Dr. Mcpherson was informed of dean removal.
[2022-09-01] MEDS: ipratropium-albuterol 3 mL Neb INHALATION (13:59)
[2022-09-01] MEDS: linezolid premix 600 MG/300 ML PREMIX 150 MG IV (20:27)
[2022-09-01] MEDS: azithromycin 500 MG in sodium chloride 0.9% 250 ML 250 MG IV (22:46)
[2022-09-02] VITALS (10 sets, daily range): BP systolic 117–156; BP diastolic 74–97; PULSE 58–93; RESP 14–24; TEMP 36.4–37.2; O2SAT 90–99
[2022-09-02 02:58] LABS: Alanine Aminotransferase 25 U/L (0-41); Albumin Level 2.9 g/dL (3.5-5.2); Alkaline Phosphatase 77 U/L (40-130); Anion Gap 18.7 (5-19); Aspartate Amino Transferase 40 U/L (0-40); Calcium 8.7 mg/dL (8.5-10.5); Carbon Dioxide 19 mmol/L (22-29); Chloride 101 mmol/L (98-107); Globulin 4.2 g/dL (1.3-4.6); Glomerular Filtration Rate 10.8 mL/min (90-130); Glucose 111 mg/dL (65-115); Osmolality Calculated 307 mOsm/kg (285-295); Potassium 3.7 mmol/L (3.5-5.1); Sodium 135 mmol/L (136-145); Total Bilirubin 0.2 mg/dL (0.15-1.2); Total Protein 7.1 g/dL (6.6-8.7)
[2022-09-02] MEDS: heparin 5,000 unit/mL INJ 1 mL 5000 UNIT SUBCUT ×2 (03:04→14:47)
[2022-09-02 03:06] LABS: Blood Urea Nitrogen 87 mg/dL (6-20); Creatine Phosphokinase 386 U/L (39-308)
[2022-09-02] MEDS: sodium chloride 0.9% 1,000 ML 100 ML IV ×2 (03:07→23:05)
[2022-09-02] MEDS: piperacillin-tazobactam 3.375 GM in sodium chloride 0.9% (plus) 50 ML IV ×2 (03:55→14:47)
[2022-09-02 04:06] LABS: CKMB 9.8 ng/mL (0-10.4); CKMB Relative Index 2.5 % (0.0-5.3)
[2022-09-02] MEDS: linezolid premix 600 MG/300 ML PREMIX 150 MG IV ×2 (08:44→20:32)
--- NOTE | 2022-09-02 10:10 | CTR_ITS ---
PROCEDURE INFORMATION: Exam: CT Chest Without Contrast; Diagnostic Exam date and time: 09/02/2022 10:49 AM Age: 56 years old Clinical indication: Fever and shortness of breath; Prior surgery; Surgery type: Trach; Additional info: Stap pna TECHNIQUE: Imaging protocol: Diagnostic computed tomography of the chest without contrast. Radiation optimization: All CT scans at this facility use at least one of these dose optimization techniques: automated exposure control; mA and/or kV adjustment per patient size (includes targeted exams where dose is matched to clinical indication); or iterative reconstruction. COMPARISON: CR XR chest 1V portable [id number] 08/30/2022 8:20 PM RADIATION DOSE METRICS: Total DLP (mGy-cm): 271.85 FINDINGS: Trachea: Tracheostomy is in place. Lungs: Debris is seen within the trachea and mainstem bronchi. Consolidative and ground-glass opacities are seen in all lobes of the lungs bilaterally with some associated tree-in-bud nodularity. Pleural spaces: Unremarkable. No pneumothorax. No pleural effusion. Heart: Unremarkable. No cardiomegaly. No pericardial effusion. Coronary arteries: Coronary artery calcification is absent. Lymph nodes: Unremarkable. No enlarged lymph nodes. Vasculature: Unremarkable. No aortic aneurysm. Bones/joints: Remote compression deformity of a midthoracic vertebral body. Soft tissues: Unremarkable. CT/CT chest wo con [id number] IMPRESSION: Multilobar aspiration and/or pneumonia. Debris within the trachea and mainstem bronchi suggests at least some component of aspiration.
--- NOTE | 2022-09-02 10:48 | P.PN_ITS ---
Subjective Subjective: Denies any new complaints Medications: Reviewed: Yes Vitals/I&O/Wt Last Vital Signs Temp 98.5 F 09/02/22 07:55 Pulse 81 09/02/22 08:44 Resp 24 H 09/02/22 08:44 BP 117/75 09/02/22 07:55 Pulse Ox 95 09/02/22 08:44 O2 Del Method 09/02/22 08:44 09/01/22 09/02/22 09/02/22 22:59 06:59 14:59 Intake Total 1790 / 2150 963.333 / 3113.333 Balance 1790 / 1000 963.333 / 1963.333 Physical Exam Narrative: Patient is awake and alert Has tracheostomy Lungs clear bilaterally but with both 1 S2 regular rate and rhythm per report No pedal edema Urinary Catheter Management: Wan: Cath Placed During This Visit: yes Reason for Continuing Indwelling Catheter: Acute Urinary Retention or Obstruction Urinary Catheter Date of Insertion: 08/31/22 Urinary Catheter Time of Insertion: 03:55 Data 09/01/22 05:56 09/02/22 02:16 Micro: Microbiology 08/31/22 01:00 Gram Stain - Final Sputum - Expectorated Sputum Sputum Culture - Preliminary Coag positive Staphylococcus A&P Assessment and plan (1) Acute kidney injury: Plan 1. Acute kidney injury: + volume depletion, mild rhabdomyolysis, Ck improving, good urine output, . Baseline renal function not available, creatinine trending down, continue to monitor 2. Influenza, pneumonia 3. Hypovolemic hyponatremia 4. Increase anion gap metabolic acidosis recommend: continue IVF hydration NSS 100 ml/hr, oral sodium bicarbonate. Pending GN workup. I explained to patient that he is not medically stable for discharge today.. Attestations Medical Necessity Statement*: Patient requires ongoing hospitalization for management of severe JOSÉ LUIS, pneumonia, and flu. 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
--- NOTE | 2022-09-02 11:01 | PC.SOCIAL ---
IMM Update pg 2 of IMM updated and reviewed w/ patient. Copy provided and copy dated, initialed and placed in chart.
[2022-09-02 16:14] LABS: Osmolality Urine 305 mOsm/kg (50-1200)
--- NOTE | 2022-09-02 16:20 | PM.PN ---
Subjective Subjective: Patient was seen this morning, denies any fevers, no chills, he is on room air Vitals/I&O/Wt Last Vital Signs Temp 98.5 F 09/02/22 07:55 Pulse 74 09/02/22 14:10 Resp 24 H 09/02/22 08:44 BP 117/75 09/02/22 07:55 Pulse Ox 91 09/02/22 14:10 O2 Del Method 09/02/22 14:10 09/02/22 09/02/22 09/02/22 06:59 14:59 22:59 Intake Total 963.333 / 3113.333 50 / 50 Balance 963.333 / 1963.333 50 / 50 Physical Exam Const: COMMON NORMALS: no acute distress and patient oriented x3 HENMT: COMMON NORMALS: normocephalic HEAD & SCALP: normocephalic Resp: COMMON NORMALS: normal respiratory effort, No retractions and No use of accessory muscles AUSCULTATION: crackles and wheezes Cardio: COMMON NORMALS: regular rate, regular rhythm, S1 normal heart sound present and S2 normal heart sound present RATE: regular rate RHYTHM: regular rhythm HEART SOUNDS: S1 normal heart sound present and S2 normal heart sound present GI: COMMON NORMALS: Normal to inspection, nondistended, normoactive bowel sounds present, Soft to palpation, non-tender, No hepatosplenomegaly present, no masses and no bruits PALPATION: Yes Soft to palpation and Yes No hepatosplenomegaly present Extremity: COMMON NORMALS: no calf tenderness and no pedal edema Neuro: COMMON NORMALS: patient oriented x3 Psych: COMMON NORMALS: mental status grossly normal Urinary Catheter Management: Wan: Cath Placed During This Visit: yes Reason for Continuing Indwelling Catheter: Acute Urinary Retention or Obstruction Urinary Catheter Date of Insertion: 08/31/22 Urinary Catheter Time of Insertion: 03:55 Data 09/01/22 05:56 09/02/22 02:16 Micro: Microbiology 08/31/22 01:00 Gram Stain - Final Sputum - Expectorated Sputum Sputum Culture - Final Staphylococcus aureus A&P Assessment and plan (1) Acute kidney injury: Severe JOSÉ LUIS, creatinine 5.5 Mild rhabdomyolysis Avoid nephrotoxins Renally dose medications Nephrology consultation Strict I&Os Renal ultrasound unremarkable Baseline renal function unknown Continue IV fluids Continue sodium bicarb (2) Pneumonia: Bilateral pneumonia, sputum cultures growing staph species Tracheostomy Continue Zosyn Continue azithromycin Continue Zyvox MRSA negative Urine legionella and strep negative We will order CT of the chest, 1 dose of Solu-Medrol (3) Influenza: Droplet precautions As she remains afebrile, on room air we will hold off on Tamiflu (4) Hyponatremia: Continue to monitor (5) Alcohol abuse: Monitor for withdrawal (6) Traumatic brain injury: Mentation seems to be at baseline (7) MDD (major depressive disorder): Continue outpatient treatment Plan DVT ppx: Heparin Code status: Full Code Plan for today, will consult speech therapy, dysphagia diet, CT of the chest, steroids, continue antibiotic therapy Attestations Medical Necessity Statement*: Patient requires hospitalization for influenza A, pneumonia, acute kidney injury Coding Level of Care Code Acute Harness Tier for [facility]w Diagnoses Acute kidney injury N17.9 Pneumonia J18.9 Influenza J11.1 Hyponatremia E87.1 Alcohol abuse F10.10 Traumatic brain injury S06.9X9A MDD (major depressive disorder) F32.9
[2022-09-02] MEDS: sodium bicarbonate 650 mg Tablet PO (20:33)
[2022-09-02] MEDS: azithromycin 500 MG in sodium chloride 0.9% 250 ML 250 MG IV (23:05)
[2022-09-02 23:45] LABS: Creatinine Urine, Random 72 mg/dL (39-259)
[2022-09-03 00:14] LABS: Urine Protein Random 36 mg/dL
[2022-09-03 02:00] VITALS: PULSE 80; O2SAT 95
[2022-09-03 02:46] LABS: Basophils % 0.4 %; Hematocrit 32.3 % (42.0-52.0); Hemoglobin 10.9 g/dL (11.7-16.6); Lymphocytes # 0.5 10^3/uL (0.8-4.8); Mean Corpuscular HGB Conc 33.7 g/dL (30.0-36.0); Mean Corpuscular Hemoglobin 28.8 pg (28.0-34.0); Mean Corpuscular Volume 85.4 fl (80-94); Mean Platelet Volume 11.3 fL (7.4-10.4); Monocytes # 0.1 10^3/uL (0.2-0.9); Monocytes % 3.5 %; Nucleated Red Blood Cells % 0 %; Platelet Count 237 10^3/cmm (130-400); Red Blood Count 3.78 10^6/uL (4.1-5.3); Red Cell Distribution Width 15.3 % (12.1-15.1); White Blood Count 2.8 10^3/uL (4.0-10.0)
[2022-09-03 03:14] LABS: Alanine Aminotransferase 22 U/L (0-41); Albumin Level 2.6 g/dL (3.5-5.2); Alkaline Phosphatase 63 U/L (40-130); Aspartate Amino Transferase 34 U/L (0-40); Blood Urea Nitrogen 58 mg/dL (6-20); C Reactive Protein 145.1 mg/L (0.0-4.9); Calcium 8.6 mg/dL (8.5-10.5); Carbon Dioxide 18 mmol/L (22-29); Chloride 106 mmol/L (98-107); Globulin 3.9 g/dL (1.3-4.6); Glomerular Filtration Rate 15.1 mL/min (90-130); Glucose 170 mg/dL (65-115); Magnesium 1.9 mg/dL (1.7-2.3); Osmolality Calculated 312 mOsm/kg (285-295); Phosphorus 2.5 mg/dL (2.5-4.5); Sodium 141 mmol/L (136-145); Total Bilirubin 0.2 mg/dL (0.15-1.2); Total Protein 6.5 g/dL (6.6-8.7)
[2022-09-03 03:23] LABS: Procalcitonin 8.01 ng/mL (0-0.5)
[2022-09-03 04:00] VITALS: BP 139/83; PULSE 59; RESP 17; TEMP 36.6; O2SAT 96
[2022-09-03] MEDS: heparin 5,000 unit/mL INJ 1 mL 5000 UNIT SUBCUT (04:02)
[2022-09-03] MEDS: piperacillin-tazobactam 3.375 GM in sodium chloride 0.9% (plus) 50 ML IV (04:03)
[2022-09-03 04:11] LABS: Slide Review Slide Review Perform
--- NOTE | 2022-09-03 07:30 | PC.NURSE ---
Patient left AMA, removed IV prior to patient leaving. Patient signed AMA and this nurse notified physician. Patient refused to stay and wait for physician to see him.
--- NOTE | 2022-09-03 07:55 | PC.NURSE ---
Alerted by [employer] that patient was demanding to have his IV taken out at 0630. I spoke with patient about the need for receiving the rest of his antibiotic; patient wanted to know when the would be in to see him and if he wasn't called and told to come see him right away that he was going to leave. Patient started getting aggressive with his language; he had been pleasant all night and slept a good portion of the night. He had had a small amount of old blood drainage through his trach.
[2022-09-03 11:15] LABS: KAPPA LIGHT CHAIN, FREE, SERUM 136.3 mg/L (3.3-19.4); KAPPA/LAMBDA LIGHT CHAINS FREE 1.12 (0.26-1.65); LAMBDA LIGHT CHAIN, FREE, SERU 121.2 mg/L (5.7-26.3)
[2022-09-03 15:33] LABS: PROTEIN, TOTAL 6.4 g/dL (6.1-8.1)
[2022-09-03 15:54] LABS: Anti-Nuclear Antibody Screen NEGATIVE (NEGATIVE)
[2022-09-04 01:14] LABS: Hepatitis B Surface AG NON-REACTIVE (NON-REACTIVE)
[2022-09-04 14:15] LABS: Glomerular Bsmt Membrane IGG <1.0 AI
[2022-09-04 14:46] LABS: ALBUMIN 2.6 g/dL (3.8-4.8); ALPHA 1 GLOBULIN 0.7 g/dL (0.2-0.3); ALPHA 2 GLOBULIN 1.1 g/dL (0.5-0.9); BETA 1 GLOBULIN 0.4 g/dL (0.4-0.6); BETA 2 GLOBULIN 0.5 g/dL (0.2-0.5); GAMMA GLOBULIN 1.1 g/dL (0.8-1.7)
[2022-09-04 15:10] LABS: Complement Total (CH50) >60 U/mL (31-60)
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
--- NOTE | 2022-09-06 12:36 | PC.SOCIAL ---
Primary Follow Up Dr. Fierro requests that patient follow up with his primary care and have renal function rechecked. His sputum culture was also growing staph, so if still symptomatic, may require additional antibiotic. CM called patient and spoke with family. Patient was sleeping. They will call and schedule patient a follow up appointment with patient's primary care when he wakes up.
[2022-09-06 15:14] LABS: ANCA Screen NEGATIVE (NEGATIVE)
== END 2022-09-03 07:55 | disposition home or self-care (01) | DRG 682 ==
LOC: ER 21:55 → MEDSURG 22:58
PROVIDERS: Internal Medicine; Admitting Provider Internal Medicine; Emergency Provider Emergency Medicine; Visit Provider Family Medicine
DX: N17.9 Acute kidney failure, unspecified (principal); J10.00 Influenza due to other identified influenza virus with unspecified type of pneumonia; E87.1 Hypo-osmolality and hyponatremia; E87.20 Acidosis, unspecified; M62.82 Rhabdomyolysis; F10.10 Alcohol abuse, uncomplicated; Z87.820 Personal history of traumatic brain injury; F32.9 Major depressive disorder, single episode, unspecified; Z93.0 Tracheostomy status; Z87.891 Personal history of nicotine dependence; Z53.29 Procedure and treatment not carried out because of patient's decision for other reasons; B95.8 Unspecified staphylococcus as the cause of diseases classified elsewhere
CPT/HCPCS: 12345; 36415; 36416; 51702; 71045; 71250; 76770; 80053; 80069; 81001; 82044; 82436; 82550; 82553; 82570; 82575; 82595; 82962; 83036; 83520; 83605; 83735; 83880; 83883; 83935; 84100; 84133; 84145; 84155; 84156; 84165; 84300; 84443; 85025; 86036; 86038; 86140; 86160; 86162; 86403; 86803; 87040; 87070; 87077; 87186; 87205; 87340; 87449; 87641; 87804; 92523; 92610; 93005; 94640; 96365; 96367; 96372; 99285; J0456; J0696; J1644; J2020; J2543; J2930; J7030; J7050; Q3014

== ENCOUNTER → 2022-09-17 11:36 | Outpatient (BNVA) | payer MEDICARE, MEDICAID, SELFPAY | PROVIDERS: PCP Family Medicine Adult Medicine; Visit Provider Family Medicine Adult Medicine | DX: N17.9 Acute kidney failure, unspecified (principal); E87.1 Hypo-osmolality and hyponatremia; J18.9 Pneumonia, unspecified organism | CPT/HCPCS: 80053; 85025 ==

== ENCOUNTER → 2023-01-22 13:38 | Outpatient (BNVA) | payer MEDICARE, MEDICAID, SELFPAY | PROVIDERS: PCP Family Medicine Adult Medicine; Visit Provider Family Medicine Adult Medicine | DX: R73.03 Prediabetes (principal); N18.30 Chronic kidney disease, stage 3 unspecified; D63.1 Anemia in chronic kidney disease | CPT/HCPCS: 80053; 83036; 85025 ==

== ENCOUNTER → 2023-10-30 14:40 | Outpatient (BNVA) | payer MEDICARE, MEDICAID, SELFPAY | PROVIDERS: PCP Family Medicine Adult Medicine; Visit Provider Family Medicine Adult Medicine | DX: N18.32 Chronic kidney disease, stage 3b (principal); R79.89 Other specified abnormal findings of blood chemistry; R73.03 Prediabetes; N18.9 Chronic kidney disease, unspecified; D63.1 Anemia in chronic kidney disease; R79.82 Elevated C-reactive protein (CRP) | CPT/HCPCS: 80053; 83036; 84145; 85025; 86140 ==

== ENCOUNTER 2024-01-19 17:09 | Emergency (ER) | payer MEDICARE, MEDICAID, SELFPAY ==
[2024-01-19 17:14] VITALS: BP 99/60; PULSE 107; RESP 16; TEMP 36.4; O2SAT 100
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
--- NOTE | 2024-01-19 17:39 | ECG_ITS ---
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 Measurements Intervals [place] Rate: 101 P: 75 SD: 136 QRS: 73 QRSD: 78 T: 72 QT: 335 QTc: 435 Interpretive Statements SINUS TACHYCARDIA ABNORMAL RHYTHM ECG Compared to ECG 08/30/2022 19:54:57 Sinus rhythm no longer present ST (T wave) deviation no longer present Electronically Signed On 01-19-2024 22:51:52 CDT by Ted Sánchez M.D. [email or web address]
--- NOTE | 2024-01-19 17:39 | XRR_ITS ---
PROCEDURE INFORMATION: Exam: XR Chest Exam date and time: 01/19/2024 5:55 PM Age: 58 years old Clinical indication: Other: Weakness; Prior surgery; Surgery date: 6+ months; Surgery type: Trach TECHNIQUE: Imaging protocol: Radiologic exam of the chest. Views: 1 view. COMPARISON: CT chest [facility] [id number] 09/02/2022 10:49 AM FINDINGS: Tubes, catheters and devices: A tracheostomy tube is in good position. Lungs: Unremarkable. No consolidation or mass. Pleural spaces: Unremarkable. No pleural effusion. No pneumothorax. Heart/Mediastinum: Unremarkable. No cardiomegaly. Bones/joints: A poorly healed left clavicle fracture is noted. XR/XR chest 1V portable [id number] IMPRESSION: No acute findings.
[2024-01-19 17:44] VITALS: BP 141/71; PULSE 107; O2SAT 90
[2024-01-19] MEDS: sodium chloride 0.9% 1,000 ML 999 ML IV (17:52)
[2024-01-19 18:00] LABS: Basophils % 0.4 %; Eosinophils # 0.1 10^3/uL (0.0-0.8); Eosinophils % 1.2 %; Hematocrit 39.9 % (37-53); Lymphocytes # 2.3 10^3/uL (0.8-4.8); Mean Corpuscular HGB Conc 31.6 g/dL (30-55); Mean Corpuscular Hemoglobin 29.6 pg (27-33); Mean Corpuscular Volume 93.7 fl (82-101); Mean Platelet Volume 9.2 fL (7.4-10.4); Monocytes # 0.9 10^3/uL (0.2-0.9); Monocytes % 9.2 %; Neutrophils # 6.45 10^3/uL (1.8-7.7); Neutrophils % 65.8 %; Nucleated Red Blood Cells % 0 %; Platelet Count 400 10^3/cmm (157-399); Red Blood Count 4.26 10^6/uL (3.85-5.65); Red Cell Distribution Width 14.4 % (12.1-15.1); White Blood Count 9.81 10^3/uL (3.29-11.43)
[2024-01-19 18:14] VITALS: BP 128/77; PULSE 96; O2SAT 100
[2024-01-19 18:15] LABS: Add Urine Microscopic? NO; Charge for UA Resulting for Rev
[2024-01-19 18:16] LABS: Troponin(5th) Baseline 12 ng/L (0-15)
[2024-01-19 18:22] LABS: Bilirubin Urine Neg (Negative); Blood Urine Neg (Negative); Glucose Urine UA Norm (Normal); Ketones Urine Negative (Negative); Leukocyte Esterase Urine Negative (Negative); Nitrate Urine Negative (Negative); Protein Urine Neg (Negative); Urine Appearance Clear (CLEAR); Urine Color Light yellow (Yellow); Urobilinogen Urine Norm (Negative); pH Urine 6 (5-7)
[2024-01-19 18:29] LABS: Alanine Aminotransferase 9 U/L (0-41); Alkaline Phosphatase 77 U/L (40-130); Anion Gap 15.7 (5-19); Aspartate Amino Transferase 13 U/L (0-40); Blood Urea Nitrogen 32 mg/dL (6-20); Calcium 8.8 mg/dL (8.5-10.5); Carbon Dioxide 24 mmol/L (22-29); Chloride 104 mmol/L (98-107); Creatinine Clr Calc Pharmacy 47.0805; Globulin 2.9 g/dL (1.3-4.6); Glomerular Filtration Rate 47.9 mL/min (90-130); Glucose 71 mg/dL (65-115); Osmolality Calculated 293 mOsm/kg (285-295); Potassium 4.7 mmol/L (3.5-5.1); Sodium 139 mmol/L (136-145); Thyroid Stimulating Hormone 6.78 uIU/mL (0.27-4.20); Total Bilirubin 0.2 mg/dL (0.15-1.2); Total Protein 6.9 g/dL (6.6-8.7)
[2024-01-19 18:30] VITALS: PULSE 97; O2SAT 100
[2024-01-19 19:20] VITALS: BP 158/109; PULSE 98; RESP 18; O2SAT 92
== END 2024-01-19 19:21 | disposition home or self-care (01) ==
PROVIDERS: Emergency Provider Emergency Medicine; PCP Family Medicine Adult Medicine
DX: E86.0 Dehydration (principal); E11.22 Type 2 diabetes mellitus with diabetic chronic kidney disease; N18.30 Chronic kidney disease, stage 3 unspecified; Z87.891 Personal history of nicotine dependence
CPT/HCPCS: 36415; 71045; 80053; 81003; 83735; 84443; 84484; 85025; 93005; 99285; J7030

== ENCOUNTER → 2024-12-02 13:57 | Outpatient (BNVA) | payer MEDICARE, MEDICAID, SELFPAY | PROVIDERS: PCP Family Medicine; Visit Provider Family Medicine | DX: E11.9 Type 2 diabetes mellitus without complications (principal); E03.9 Hypothyroidism, unspecified | CPT/HCPCS: 80053; 80061; 83036; 84439; 84443; 85025 ==

== ENCOUNTER → 2025-05-04 14:01 | Outpatient (BNVA) | payer MEDICARE, MEDICAID, SELFPAY | PROVIDERS: PCP Family Medicine; Visit Provider Family Medicine | DX: E03.9 Hypothyroidism, unspecified (principal) | CPT/HCPCS: 84443 ==

== ENCOUNTER 2025-06-03 15:36 | Emergency (ER) | payer MEDICARE, MEDICAID, SELFPAY ==
[2025-06-03 15:39] VITALS: BP 124/75; PULSE 100; RESP 19; TEMP 36.8; O2SAT 99; BMI 20.6
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
--- OUTSIDE RECORDS SUMMARY | 2025-06-03 15:44 | XMS_ITS | Encounter Summary ---
Author Organization [facility] Address [address] [facility] Attn: [place] [address] Care Team Providers Care Bark Tanner Name Role Phone Kym Richardson Primary Care Provider [phone] Encounter Details Date Type Department Care Team (Late st Contact Info) Description 10/02/2001 Inpatient Historical Hussain Bradley MD [address] [facility] [address] [place] [address] Social History Tobacco Use Types Packs/Day Years Used Date Smoking Tobacco: Never Assessed Sex and Gender Information Value Date Recorded Sex Assigned at Not on file 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
--- OUTSIDE RECORDS SUMMARY | 2025-06-03 15:44 | XMS_ITS | Encounter Summary ---
Author Organization [facility] Address [address] [place] [address] Care Team Providers Care Pool Installer Name Role Phone Kym Richardson Primary Care Provider [phone] Encounter Details Date Type Department Care Team (Late st Contact Info) Description 08/19/2008 Emergency [facility] Emergency Department [address] [place] [id number] Ed, Physician NO ADDRESS ON FILE Nayeli Smith MD [address] [place] [address] Social History Tobacco Use Types Packs/Day Years Used Date Smoking Tobacco: Never Assessed Sex and Gender Information Value Date Recorded Sex Assigned at Not on file Legal Sex Male 4:48 AM WATER COMMISSIONER Gender Identity Not on file Sexual Orientation Not on file documented as of this encounter Plan of Treatment Not on file documented as of this encounter Procedures Procedure Name Priority Date/Time Associated Diagnosis Comments XR ABDOMEN FOR FEEDING TUBE 1 VW Routine 08/19/2008 5:56 PM WATER COMMISSIONER XR ABDOMEN 1 VW Routine 08/19/2008 4:56 PM WATER COMMISSIONER XR CHEST PA OR AP 1 VW Routine 08/19/2008 4:56 PM WATER COMMISSIONER documented in this encounter Results * XR ABDOMEN FOR FEEDING TUBE (08/19/2008 5:56 PM WATER COMMISSIONER) Anatomical Region Laterality Modality Abdomen Other 08/19/2008 5:56 PM WATER COMMISSIONER Narrative 08/19/2008 9:11 PM WATER COMMISSIONER Two views of the abdomen are submitted. There is a feeding tube with tip in the stomach. The tip is not in the duodenum. The bowel gas pattern is otherwise nonspecific. Impression: 1. Feeding tube tip is in the stomach. - Dictated By: Cate Osorio M.D. Electronically Signed By: Cate Osorio M.D. Date Signed: 08/19/08 [facility] Procedure Note Cate Osorio - 08/19/2008 Two views of the abdomen are submitted. There is a feeding tube with tip in the stomach. The tip is not in theduodenum. The bowel gas pattern is otherwise nonspecific. Impression: 1. Feeding tube tip is in the stomach. - Dictated By: Cate Osorio M.D. Electronically Signed By: Cate Osorio M.D. Date Signed: 08/19/08 [facility] Nayeli Smith MD DIAGNOSTIC IMAGING ORDERAB LES Final Result * XR CHEST PA OR AP (08/19/2008 4:56 PM WATER COMMISSIONER) Anatomical Region Laterality Modality Chest Other 08/19/2008 4:56 PM WATER COMMISSIONER Narrative 08/19/2008 5:39 PM WATER COMMISSIONER A single view of the chest is submitted. There is a tracheostomy in good position. There is a feeding tube coiled either in the stomach or the tip is in the duodenum. There is contrast in the colon. The lungs are clear. Impression: 1. Feeding tube is either in the stomach or in the second portion of the duodenum. - Dictated By: Cate Osorio M.D. Electronically Signed By: Cate Osorio M.D. Date Signed: 08/19/08 [facility] Procedure Note Cate Osorio - 08/19/2008 A single view of the chest is submitted. There is a tracheostomy in goodposition. There is a feeding tube coiled either in the stomach or the tip is in the duodenum. There iscontrast in the colon. The lungs are clear. Impression: 1. Feeding tube is either in the stomach or in the second portion of theduodenum. - Dictated By: Cate Osorio M.D. Electronically Signed By: Cate Osorio M.D. Date Signed: 08/19/08 [facility] Physician [facility] DIAGNOSTIC IMAGING ORDERABLES Fi nal Result * XR ABDOMEN 1 VW (08/19/2008 4:56 PM WATER COMMISSIONER) Anatomical Region Laterality Modality Abdomen Other 08/19/2008 4:56 PM WATER COMMISSIONER Narrative 08/19/2008 5:39 PM WATER COMMISSIONER Two views of the abdomen are submitted. There is a feeding tube in the left upper quadrant. The tip of the feeding tube is either in the duodenum or coiled in the stomach. The bowel gas pattern is nonspecific. Lung bases are clear. - Dictated By: Cate Osorio M.D. Electronically Signed By: Cate Osorio M.D. Date Signed: 08/19/08 [facility] Procedure Note Cate Osorio - 08/19/2008 Two views of the abdomen are submitted. There is a feeding tube in the left upper quadrant. The tip of the feedingtube is either in the duodenum or coiled in the stomach. The bowel gas pattern is nonspecific. Lungbases are clear. - Dictated By: Cate Osorio M.D. Electronically Signed By: Cate Osorio M.D. Date Signed: 08/19/08 [facility] us Physician [facility] DIAGNOSTIC IMAGING ORDERABLES Fi nal Result documented in this encounter Visit Diagnoses Not on filedocumented in this encounter Care Teams Pool Installer Relationship Specialty Start Date End Date Kym Richardson PA PCP - General 01/30/09 documented as of this encounter
--- OUTSIDE RECORDS SUMMARY | 2025-06-03 15:44 | XMS_ITS | Encounter Summary ---
Author Organization [facility] Address [address] 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
--- OUTSIDE RECORDS SUMMARY | 2025-06-03 15:44 | XMS_ITS | Encounter Summary ---
Author Organization [facility] Address [address] [place] [address] Care Team Providers Care Insurance Claims Clerk Name Role Phone Kym Richardson Primary Care Provider [phone] Encounter Details Date Type Department Care Team (Late st Contact Info) Description 09/26/2008 Outpatient Historical [facility] Imaging Services [address] [place] [phone] Non-Staff, Physician NO ADDRESS ON FILE Social History Tobacco Use Types Packs/Day Years Used Date Smoking Tobacco: Never Assessed Sex and Gender Information Value Date Recorded Sex Assigned at Not on file Legal Sex Male 4:48 AM HEALTH SCIENCES PROGRAM COORDINATOR Gender Identity Not on file Sexual Orientation Not on file documented as of this encounter Plan of Treatment Not on file documented as of this encounter Procedures Procedure Name Priority Date/Time Associated Diagnosis Comments XR ABDOMEN 1 VW Routine 09/26/2008 2:22 PM HEALTH SCIENCES PROGRAM COORDINATOR documented in this encounter Results * XR ABDOMEN 1 VW (09/26/2008 2:22 PM HEALTH SCIENCES PROGRAM COORDINATOR) Anatomical Region Laterality Modality Abdomen Other 09/26/2008 2:22 PM HEALTH SCIENCES PROGRAM COORDINATOR Narrative 09/27/2008 7:14 AM HEALTH SCIENCES PROGRAM COORDINATOR Exam: Fluoro Feeding Tube Placement Date/Time of Exam: Sep 26, 2008 2:22:20 PM History: REPLACE FEEDING TUBE. Comparison: None. Findings: The images and findings were reviewed with Dr. Wood prior to the time of dictation. A guidewire was placed into the indwelling transpyloric feeding tube. The catheter was removed. A 9.5 Fr Ring Velez feeding tube was placed over the wire, with the tip at the third portion of the duodenum. Impression: Uneventful feeding tube placement. - Dictated By: Nicola Mendoza Electronically Signed By: Fritz Wood M.D. Date Signed: 09/27/08 Procedure Note Fritz Wood MD - 09/27/2008 Exam: Fluoro Feeding Tube Placement Date/Time of Exam: Sep 26, 2008 2:22:20 PM History: REPLACE FEEDING TUBE. Comparison: None. Findings: The images and findings were reviewed with Dr. Wood prior tothe time of dictation. A guidewire was placed into the indwelling transpyloric feeding tube. Thecatheter was removed. A 9.5 Fr Ring Velez feeding tube was placed over the wire, with the tip at thethird portion of the duodenum. Impression: Uneventful feeding tube placement. - Dictated By: Nicola Mendoza Electronically Signed By: Fritz Wood M.D. Date Signed: 09/27/08 us Darrick Espinoza MD DIAGNOSTIC IMAGING ORD ERABLES Final Result documented in this encounter Visit Diagnoses Not on filedocumented in this encounter Care Teams Insurance Claims Clerk Relationship Specialty Start Date End Date Kym Richardson PA PCP - General 01/30/09 documented as of this encounter
--- OUTSIDE RECORDS SUMMARY | 2025-06-03 15:44 | XMS_ITS | Clinical Summary ---
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 Attention to tracheostomy 07/20/2009 Other diseases of vocal cords 01/31/2009 Social History Tobacco Use Types Packs/Day Years Used Date Smoking Tobacco: Former Cigarettes Q uit: 06/23/2008 Alcohol Use Standard Drinks/Week Comments No 0 (1 standard drink = 0.6 oz pur e alcohol) Sex and Gender Information Value Date Recorded Sex Assigned at Not on file Legal Sex Male 7:02 AM MIXER BLENDER Gender Identity Not on file Sexual Orientation Not on file Plan of Treatment Health Maintenance Due Date Last Done Comments UPPER GI ENDOSCOPY 1982 DTAP/TDAP/TD VACCINES (1 - Tdap) 11/29/1983 COLORECTAL SCREENING 2009 Colorectal Cancer Screening 2009 FIT-DNA Q 3 years 2009 FIT/FOBT Q 1 year 2009 Flex Sig/CT Colonography Q 5 years 2009 ZOSTER VACCINE (1 of 2) 2014 INFLUENZA VACCINE (#1) 2025 RSV VACCINE (60+ or ) (1 - 1-dose 75+ series) 11/29/2039 HEPATITIS B VACCINES Aged Out No long er eligible based on patient's age to complete this topic Medical Devices Implanted Type Area Ice Cream Shop Associate Device Identifier Shelf Expiration Date Model / Serial / Lot Tube Feed Gastrostomy 18fr [id number] - Sna Implanted:Qty: 1 on 10/21/2008 Feeding Device [employer] [id number] / NA / [id number] Trach Tube Implanted:Qty: 1 on 01/31/2009 Trachea 04/22/2013 6 CFN / / [id number] Description:MAXINE Purcell CFN [employer] UFFED TRACH TUBE Explanted Type Area Ice Cream Shop Associate Device Identifier Shelf Expiration Date Model / Serial / Lot Trach Explanted:Qty: 1 on 01/31/2009 Trachea Description:6 uncuffed trach tube Trach Tube Explanted:Qty: 1 on 01/31/2009 Trachea 07/23/2013 6 DCT / N/A / [id number] Description:maxine Purcell DCT cuf fed trach tube Care Teams Falafel Cart Cook Relationship Specialty Start Date End Date Kym Richardson PA [address] [place] [address] PCP - General 01/30/09
--- OUTSIDE RECORDS SUMMARY | 2025-06-03 15:44 | XMS_ITS | Clinical Summary ---
Author Organization [facility] Address [address] [place] [address] Care Team Providers Care Coal Loader Name Role Phone Kym Richardson Primary Care Provider [phone] Allergies No known active allergies Medications pantoprazole (PROTONIX) 40 mg Oral TbEC Take 40 mg by mouth daily. 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 Attention to tracheostomy 07/20/2009 Other diseases of vocal cords 01/31/2009 Social History Tobacco Use Types Packs/Day Years Used Date Smoking Tobacco: Former Cigarettes 1 25 1 - 06/23/2008 Alcohol Use Standard Drinks/Week Comments No 0 (1 standard drink = 0.6 oz pur e alcohol) Sex and Gender Information Value Date Recorded Sex Assigned at Not on file Legal Sex Male 4:48 AM AUDIO VISUAL PROJECT MANAGER Gender Identity Not on file Sexual Orientation Not on file Last Filed Vital Signs Vital Sign Reading Time Taken Comments Blood Pressure 120/88 08/08/2011 1:05 PM AUDIO VISUAL PROJECT MANAGER Pulse 66 08/08/2011 1:05 PM AUDIO VISUAL PROJECT MANAGER Temperature 36.2 C (97.1 F) 02/12/2010 1:27 PM CDT Respiratory Rate 18 02/12/2010 3:24 PM CDT Oxygen Saturation 94% 02/12/2010 3:24 PM CDT Inhaled Oxygen Concentration - - Weight 64.9 kg (143 lb) 08/08/2011 1:05 PM AUDIO VISUAL PROJECT MANAGER Height 167.6 cm (5' 6 ) 08/08/2011 1:05 PM AUDIO VISUAL PROJECT MANAGER Body Mass Index 23.08 08/08/2011 1:05 PM AUDIO VISUAL PROJECT MANAGER Plan of Treatment Health Maintenance Due Date Last Done Comments DTAP/TDAP/TD VACCINES (1 - Tdap) 11/29/1983 COLORECTAL SCREENING 2009 Colorectal Cancer Screening 2009 FIT-DNA Q 3 years 2009 FIT/FOBT Q 1 year 2009 Flex Sig/CT Colonography Q 5 years 2009 UPPER GI ENDOSCOPY 02/15/2013 02/15/2010, 02/12/2010 ZOSTER VACCINE (1 of 2) 2014 INFLUENZA VACCINE (#1) 2025 RSV VACCINE (60+ or ) (1 - 1-dose 75+ series) 11/29/2039 HEPATITIS B VACCINES Aged Out No long er eligible based on patient's age to complete this topic Medical Devices Implanted Type Area Pipe Coverer Helper Device Identifier Shelf Expiration Date Model / Serial / Lot Tube Feed Gastrostomy 18fr [id number] - Sna Implanted:Qty: 1 on 10/21/2008 at [facility] Feeding Device [employer] [id number] / NA / [id number] Trach Tube Implanted:Qty: 1 on 01/31/2009 at [facility] Trachea 04/22/2013 6 CFN / / [id number] Description:MAXINE 6 CFN UNC UFFED TRACH TUBE Explanted Type Area Pipe Coverer Helper Device Identifier Shelf Expiration Date Model / Serial / Lot Trach Explanted:Qty: 1 on 01/31/2009 at [facility] Trachea Description:6 uncuffed trach tube Trach Tube Explanted:Qty: 1 on 01/31/2009 at [facility] Trachea 07/23/2013 6 DCT / N/A / [id number] Description:maxine 6 DCT cuf fed trach tube Insurance [address] [place] [address] MEDICAID [place] MEDICARE PART A AND B [address] [place] [address] Advance Directives For more information, please contact: [phone] * Full Code (Latest Code Status on File) Date Activated Date Inactivated Comments 01/31/2009 9:00 AM 02/01/2009 2:02 AM * Full Code Date Activated Date Inactivated Comments 01/31/2009 7:31 AM 01/31/2009 9:00 AM * Full Code Date Activated Date Inactivated Comments 10/21/2008 4:17 PM 10/25/2008 2:37 PM * Full Code Date Activated Date Inactivated Comments 10/21/2008 11:36 AM 10/21/2008 4:17 PM * Full Code Date Activated Date Inactivated Comments 10/21/2008 8:08 AM 10/21/2008 11:36 AM Care Teams Coal Loader Relationship Specialty Start Date End Date Kym Richardson PA PCP - General 01/30/09
--- OUTSIDE RECORDS SUMMARY | 2025-06-03 15:44 | XMS_ITS | Encounter Summary ---
Author Organization [facility] Address [address] [place] [address] Care Team Providers Care Cryptological Technician Name Role Phone Kym Richardson Primary Care Provider [phone] Encounter Details Date Type Department Care Team (Late st Contact Info) Description 08/22/2008 Outpatient Historical [facility] Services [address] [place] [phone] Nayeli Smith MD [address] [place] [address] Social History Tobacco Use Types Packs/Day Years Used Date Smoking Tobacco: Never Assessed Sex and Gender Information Value Date Recorded Sex Assigned at Not on file Legal Sex Male 4:48 AM PROFILING MACHINE SET UP 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 Gender Identity Not on file Sexual Orientation Not on file documented as of this encounter Plan of Treatment Not on file documented as of this encounter Procedures Procedure Name Priority Date/Time Associated Diagnosis Comments XR ABDOMEN 1 VW Routine 08/22/2008 1:22 PM PROFILING MACHINE SET UP OPERATOR documented in this encounter Results * XR ABDOMEN 1 VW (08/22/2008 1:22 PM PROFILING MACHINE SET UP OPERATOR) Anatomical Region Laterality Modality Abdomen Other 08/22/2008 1:22 PM PROFILING MACHINE SET UP OPERATOR Narrative 08/24/2008 4:51 PM PROFILING MACHINE SET UP OPERATOR Exam: Fluoro Feeding Tube Placement Date/Time of Exam: Aug 22, 2008 1:22:38 PM History: Replace feeding tube. Using fluoroscopic guidance, a 9.5 [place] Ring-Velez feeding tube was placed with tip beneath third portion of the duodenum. - Dictated By: Rc Pugh M.D. Electronically Signed By: Rc Pugh M.D. Date Signed: 08/24/08 [facility] Procedure Note Rc Pugh MD - 08/24/2008 Exam: Fluoro Feeding Tube Placement Date/Time of Exam: Aug 22, 2008 1:22:38 PM History: Replace feeding tube. Using fluoroscopic guidance, a 9.5 [place] Ring-Velez feeding tube wasplaced with tip beneath third portion of the duodenum. - Dictated By: Rc Pugh M.D. Electronically Signed By: Rc Pugh M.D. Date Signed: 08/24/08 [facility] us Nayeli Smith MD DIAGNOSTIC IMAGING ORDERAB LES Final Result documented in this encounter Visit Diagnoses Not on filedocumented in this encounter Care Teams Cryptological Technician Relationship Specialty Start Date End Date Kym Richardson PA PCP - General 01/30/09 documented as of this encounter
--- OUTSIDE RECORDS SUMMARY | 2025-06-03 15:44 | XMS_ITS | Encounter Summary ---
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 Gallegos DO POINT OF CARE TESTING Final Re sult Performing Organization Address City/[facility] Co de Phone Number INTERFACE SYSTEM Refer to clinic/hospital department [facility] CLIA# [id number] [address] [place] [address] * BLOOD CULTURE (07/02/2008 7:45 PM CDT) FINAL REPORT No growth INTERFA CE SYSTEM Blood specimen (specimen) 07/02/2008 7:45 PM CDT 07/02/2008 9:26 PM CDT us Angel Luis Gallegos DO MICROBIOLOGY - GENERAL ORDERAB LES Final Result Performing Organization Address [facility] Phone Number INTERFACE SYSTEM Refer to clinic/hospital department * BLOOD CULTURE (07/02/2008 7:40 PM CDT) FINAL REPORT No growth INTERFA CE SYSTEM Blood specimen (specimen) 07/02/2008 7:40 PM CDT 07/02/2008 9:26 PM CDT us Angel Luis Gallegos DO MICROBIOLOGY - GENERAL ORDERAB LES Final Result Performing Organization Address [facility] Phone Number INTERFACE SYSTEM Refer to clinic/hospital department * (ABNORMAL) POC GLUCOSE (07/02/2008 6:17 PM CDT) GLUCOSE POC 149(H) 60 - 100 mg/dL [facility] Venous blood specimen (specimen) 07/02/2008 6:17 PM CDT 07/03/2008 2:42 AM CDT us Angel Luis Gallegos DO POINT OF CARE TESTING Final Re sult Performing Organization Address [facility] de Phone Number INTERFACE SYSTEM Refer to clinic/hospital department [facility] CLIA# [id number] [address] [place] [address] * XR ABDOMEN FOR FEEDING TUBE (07/02/2008 5:40 PM CDT) Anatomical Region Laterality Modality Abdomen Other 07/02/2008 5:40 PM CDT Narrative 07/03/2008 10:34 PM CDT Comparison 07/02/2008. Advancement of the feeding tube from the mid esophagus into the region of the distal gastric antrum. - Dictated By: Jay Delatorre M.D. Electronically Signed By: Jay Delatorre M.D. Date Signed: 07/03/08 SDM Procedure Note Hussain Delatorre Royal - 07/03/2008 Comparison 07/02/2008. Advancement of the feeding tube from the mid esophagus into the region ofthe distal gastric antrum. - Dictated By: Jay Delatorre M.D. Electronically Signed By: Jay Delatorre M.D. Date Signed: 07/03/08 SDM Angel Luis Gallegos DO DIAGNOSTIC IMAGING ORDERABLES Final Result * (ABNORMAL) POC GLUCOSE (07/02/2008 12:21 PM CDT) GLUCOSE POC 147(H) 60 - 100 mg/dL [facility] Venous blood specimen (specimen) 07/02/2008 12:21 PM CDT 07/03/2008 2:39 AM CDT us Angel Luis Gallegos DO POINT OF CARE TESTING Final Re sult INTERFACE SYSTEM Refer to clinic/hospital department [facility] CLIA# [id number] [address] [place] [address] * XR CHEST PA OR AP (07/02/2008 6:18 AM CDT) Anatomical Region Laterality Modality Chest Other 07/02/2008 6:18 AM CDT Narrative 07/02/2008 10:13 AM CDT Exam: Chest - Portable Date/Time of Exam: Jul 02, 2008 6:18:37 AM History: Please see order comments. Findings: The AP upright study is compared to the exam of 06/29/2008. The tracheostomy is again noted. A feeding tube is in place with the tip in the midesophagus. The lungs are adequately inflated. The lungs are clear. Heart size is within normal limits. The pulmonary vessels are unremarkable. A left clavicle fracture is again noted. Impression: 1. The tip of the feeding tube is in the midesophagus. 2. Left clavicle fracture. - Dictated By: Lauren Sparrow M.D. Electronically Signed By: Lauren Sparrow M.D. Date Signed: 07/02/08 GRB Procedure Note Lauren Sparrow MD - 07/02/2008 Exam: Chest - Portable Date/Time of Exam: Jul 02, 2008 6:18:37 AM History: Please see order comments. Findings: The AP upright study is compared to the exam of 06/29/2008. The tracheostomy is again noted. A feeding tube is in place with the tipin the midesophagus. The lungs are adequately inflated. The lungs are clear. Heart size is within normallimits. The pulmonary vessels are unremarkable. A left clavicle fracture is again noted. Impression: 1. The tip of the feeding tube is in the midesophagus. 2. Left clavicle fracture. - Dictated By: Lauren Sparrow M.D. Electronically Signed By: Lauren Sparrow M.D. Date Signed: 07/02/08 GRB Angel Luis Gallegos DO DIAGNOSTIC IMAGING ORDERABLES Final Result * (ABNORMAL) BASIC METABOLIC PANEL (07/02/2008 5:14 AM CDT) CALCIUM 10.4 8.4 - 10.5 mg/dL [facility] GLUCOSE 131(H) 70 - 110 mg/dL [facility] CHLORIDE 102 95 - 110 mEq/L [facility] ANION GAP 10 9 - 20 mEq/L [facility] SODIUM 139 136 - 145 mEq/L [facility] BUN 25(H) 9 - 20 mg/dL [facility] CO2 31 22 - 32 mmol/l [facility] POTASSIUM 4.0 3.5 - 5.0 mEq/L [facility] OSMOLALITY, CALCULATED 292 275 - 295 mOsm/Kg [facility] CREATININE 0.6(L) 0.7 - 1.5 mg/dL [facility] Blood specimen (specimen) 07/02/2008 5:14 AM CDT 07/02/2008 5:19 AM CDT Angel Luis Gallegos DO CHEMISTRY ORDERABLES Final Res ult INTERFACE SYSTEM Refer to clinic/hospital department [facility] CLIA# [id number] [facility] [place] [address] * (ABNORMAL) CBC WITH DIFFERENTIAL (07/02/2008 5:14 AM CDT) MONOCYTE ABSOLUTE 1.1(H) 0.1 - 0.6 K/ul [facility] MONOCYTES 10.5(H) 2.0 - 10.0 % [facility] WBC 10.0 4.5 - 11.0 K/ul [facility] MCH 32.7 27.0 - 34.0 pg [facility] NEUTROPHIL ABSOLUTE 7.4 2.0 - 8.0 K/ul [facility] NEUTROPHILS 73.7 42.2 - 75.2 % [facility] HEMATOCRIT 33.9(L) 41.0 - 53.0 % [facility] EOSINOPHILS 2.4 0.0 - 7.0 % [facility] PLATELETS 450(H) 140 - 440 K/ul [facility] EOSINOPHIL ABSOLUTE 0.2 0.0 - 0.7 K/ul [facility] RBC 3.43(L) 4.60 - 6.20 Mil/ul [facility] LYMPHOCYTES 13.2(L) 24.0 - 44.0 % [facility] MCHC 33.0 30.0 - 35.0 g/dL [facility] LYMPHOCYTE ABSOLUTE 1.3 1.2 - 4.0 K/ul [facility] MCV 98.8 84.0 - 103.0 Fl [facility] MPV 9.5 8.9 - 12.8 Fl [facility] BASOPHILS ABSOLUTE 0.0 0.0 - 0.2 K/ul [facility] BASOPHILS 0.2 0.0 - 1.0 % [facility] HEMOGLOBIN 11.2(L) 14.0 - 18.0 g/dL [facility] RDW 12.7 11.0 - 14.5 % [facility] Blood specimen (specimen) 07/02/2008 5:14 AM CDT 07/02/2008 5:19 AM CDT Angel Luis Gallegos DO HEMATOLOGY ORDERABLES Final Re sult Performing Organization Address [facility] Phone Number INTERFACE SYSTEM Refer to clinic/hospital department [facility] CLIA# [id number] [address] [place] [address] * (ABNORMAL) POC GLUCOSE (07/02/2008 5:07 AM CDT) GLUCOSE POC 129(H) 60 - 100 mg/dL [facility] Venous blood specimen (specimen) 07/02/2008 5:07 AM CDT 07/02/2008 7:30 AM CDT Angel Luis Gallegos DO POINT OF CARE TESTING Final Re sult Performing Organization Address [facility] Phone Number INTERFACE SYSTEM Refer to clinic/hospital department [facility] CLIA# [id number] [address] [place] [address] * (ABNORMAL) POC ISTAT EG 7+ (07/02/2008 4:46 AM CDT) SODIUM 136(L) 138 - 146 mEq/L [facility] PH 7.43 7.35 - 7.45 Unit [facility] O2 SATURATION 99(H) 95 - 98 % [facility] PO2 TEMP CORRECT 116(H) 80 - 105 mmHg [facility] CALCIUM IONIZED 1.28 1.12 - 1.32 mmol/l [facility] SPECIMEN TYPE Arterial [facility] Comment: Test Performed By [id number] Pulse OX: 99 Hemoglobin calculated from Hematocrit result PCO2 TEMP CORRECT 46(H) 35 - 45 mmHg [facility] HEMOGLOBIN POC 11.2 +/-3 g/dL 13.5 - 18.0 g/dL [facility] POTASSIUM 3.8 3.5 - 4.9 mEq/L [facility] PH TEMP CORRECT 7.43 7.35 - 7.45 Unit [facility] HCO3 (CALC) POC 30.7(H) 22.0 - 26.0 mmol/l [facility] TCO2 (CALC) POC 32(H) 23 - 27 mmol/l [facility] FIO2 38 [facility] PO2 116(H) 80 - 105 mmHg [facility] HEMATOCRIT ABG 33(L) 38 - 51 % [facility] PCO2 POC 46(H) 35 - 45 mmHg [facility] BASE EXCESS 6(H) -2 - 3 mmol/l [facility] Arterial blood specimen (specimen) 07/02/2008 4:46 AM CDT 07/02/2008 6:02 AM CDT us Angel Luis Gallegos DO POINT OF CARE TESTING COM Mckenzie l Result INTERFACE SYSTEM Refer to clinic/hospital department [facility] CLIA# [id number] [address] [place] [address] * (ABNORMAL) POC GLUCOSE (07/01/2008 11:13 PM CDT) GLUCOSE POC 126(H) 60 - 100 mg/dL [facility] Venous blood specimen (specimen) 07/01/2008 11:13 PM CDT 07/02/2008 7:31 AM CDT Angel Luis Gallegos DO POINT OF CARE TESTING Final Re sult Performing Organization Address [facility] de Phone Number INTERFACE SYSTEM Refer to clinic/hospital department [facility] CLIA# [id number] [address] [place] [address] * (ABNORMAL) POC GLUCOSE (07/01/2008 6:10 PM CDT) GLUCOSE POC 137(H) 60 - 100 mg/dL [facility] Venous blood specimen (specimen) 07/01/2008 6:10 PM CDT 07/02/2008 7:30 AM CDT Angel Luis Gallegos DO POINT OF CARE TESTING Final Re sult Performing Organization Address [facility] de Phone Number INTERFACE SYSTEM Refer to clinic/hospital department [facility] CLIA# [id number] [address] [place] [address] * (ABNORMAL) POC GLUCOSE (07/01/2008 12:08 PM CDT) GLUCOSE POC 175(H) 60 - 100 mg/dL [facility] Venous blood specimen (specimen) 07/01/2008 12:08 PM CDT 07/02/2008 7:30 AM CDT Angel Luis Mann El DO POINT OF CARE TESTING Final Re sult Performing Organization Address [facility] de Phone Number INTERFACE SYSTEM Refer to clinic/hospital department [facility] CLIA# [id number] [address] [place] [address] * (ABNORMAL) BASIC METABOLIC PANEL (07/01/2008 5:15 AM CDT) GLUCOSE 156(H) 70 - 110 mg/dL [facility] CHLORIDE 103 95 - 110 mEq/L [facility] SODIUM 138 136 - 145 mEq/L [facility] ANION GAP 10 9 - 20 mEq/L [facility] BUN 15 9 - 20 mg/dL [facility] CO2 29 22 - 32 mmol/l [facility] OSMOLALITY, CALCULATED 289 275 - 295 mOsm/Kg [facility] POTASSIUM 4.2 3.5 - 5.0 mEq/L [facility] Comment: Specimen slightly hemolyzed CREATININE 0.6(L) 0.7 - 1.5 mg/dL [facility] CALCIUM 10.0 8.4 - 10.5 mg/dL [facility] Blood specimen (specimen) 07/01/2008 5:15 AM CDT 07/01/2008 5:15 AM CDT us Angel Luis Gallegos DO CHEMISTRY ORDERABLES Final Res ult Performing Organization Address City/State/[facility] Co de Phone Number INTERFACE SYSTEM Refer to clinic/hospital department [facility] CLIA# [id number] [address] [place] [address] * (ABNORMAL) CBC WITH DIFFERENTIAL (07/01/2008 5:15 AM CDT) HEMOGLOBIN 11.3(L) 14.0 - 18.0 g/dL [facility] MONOCYTES 11.4(H) 2.0 - 10.0 % [facility] RDW 12.8 11.0 - 14.5 % [facility] MONOCYTE ABSOLUTE 1.2(H) 0.1 - 0.6 K/ul [facility] WBC 10.8 4.5 - 11.0 K/ul [facility] NEUTROPHILS 79.4(H) 42.2 - 75.2 % [facility] MCH 32.8 27.0 - 34.0 pg [facility] NEUTROPHIL ABSOLUTE 8.5(H) 2.0 - 8.0 K/ul [facility] HEMATOCRIT 33.9(L) 41.0 - 53.0 % [facility] PLATELETS 359 140 - 440 K/ul [facility] EOSINOPHIL ABSOLUTE 0.2 0.0 - 0.7 K/ul [facility] EOSINOPHILS 1.6 0.0 - 7.0 % [facility] RBC 3.44(L) 4.60 - 6.20 Mil/ul [facility] MCHC 33.3 30.0 - 35.0 g/dL [facility] LYMPHOCYTE ABSOLUTE 0.8(L) 1.2 - 4.0 K/ul [facility] LYMPHOCYTES 7.3(L) 24.0 - 44.0 % [facility] MCV 98.5 84.0 - 103.0 Fl [facility] BASOPHILS 0.3 0.0 - 1.0 % [facility] MPV 10.1 8.9 - 12.8 Fl [facility] BASOPHILS ABSOLUTE 0.0 0.0 - 0.2 K/ul [facility] Blood specimen (specimen) 07/01/2008 5:15 AM CDT 07/01/2008 5:15 AM CDT Angel Luis Gallegos DO HEMATOLOGY ORDERABLES Final Re sult Performing Organization Address City/[facility] de Phone Number INTERFACE SYSTEM Refer to clinic/hospital department [facility] CLIA# [id number] [address] [place] [address] * (ABNORMAL) POC GLUCOSE (07/01/2008 5:08 AM CDT) GLUCOSE POC 175(H) 60 - 100 mg/dL [facility] Venous blood specimen (specimen) 07/01/2008 5:08 AM CDT 07/01/2008 7:03 AM CDT Angel Luis Gallegos DO POINT OF CARE TESTING Final Re sult Performing Organization Address City/[facility] de Phone Number INTERFACE SYSTEM Refer to clinic/hospital department [facility] CLIA# [id number] [address] [place], [place] [id number] * (ABNORMAL) POC GLUCOSE (06/30/2008 11:42 PM CDT) GLUCOSE POC 150(H) 60 - 100 mg/dL [facility] Venous blood specimen (specimen) 06/30/2008 11:42 PM CDT 07/01/2008 7:02 AM CDT Angel Luis Gallegos DO POINT OF CARE TESTING Final Re sult INTERFACE SYSTEM Refer to clinic/hospital department [facility] CLIA# [id number] [address] [place] [address] * XR ABDOMEN FOR FEEDING TUBE (06/30/2008 8:40 PM CDT) Anatomical Region Laterality Modality Abdomen Other 06/30/2008 8:40 PM CDT Narrative 07/01/2008 12:13 AM CDT Exam: Tube Placement (Feeding/NG) Date/Time of Exam: Jun 30, 2008 8:40:51 PM History: Check tube placement. Findings: AP submitted, there is a feeding tube looped in the stomach such that the distal loop is located within the gastric body. However, the distal tip is directed upward located in the fundus. The tube can be pulled back at least 10 cm and then slowly advanced distally. Intestinal pattern is nonspecific. - Dictated By: Get Brandt M.D. Electronically Signed By: Get Brandt M.D. Date Signed: 07/01/08 Procedure Note Get Brandt - 07/01/2008 Exam: Tube Placement (Feeding/NG) Date/Time of Exam: Jun 30, 2008 8:40:51 PM History: Check tube placement. Findings: AP submitted, there is a feeding tube looped in the stomach suchthat the distal loop is located within the gastric body. However, the distal tip is directedupward located in the fundus. The tube can be pulled back at least 10 cm and then slowly advanced distally.Intestinal pattern is nonspecific. - Dictated By: Get Karly, M.D. Electronically Signed By: Get Brandt M.D. Date Signed: 07/01/08 Angel Luis Gallegos DO DIAGNOSTIC IMAGING ORDERABLES Final Result * (ABNORMAL) POC ISTAT EG 7+ (06/30/2008 8:31 PM CDT) PH TEMP CORRECT 7.35 7.35 - 7.45 Unit [facility] TCO2 (CALC) POC 31(H) 23 - 27 mmol/l [facility] HCO3 (CALC) POC 29.6(H) 22.0 - 26.0 mmol/l [facility] TEMPERATURE 100.5 DegC [facility] HEMATOCRIT ABG 33(L) 38 - 51 % [facility] PO2 127(H) 80 - 105 mmHg [facility] CALCIUM IONIZED 1.25 1.12 - 1.32 mmol/l [facility] SPECIMEN TYPE Arterial [facility] Comment: Test Performed By [id number] Pulse OX: 98 Hemoglobin calculated from Hematocrit result PCO2 POC 52(H) 35 - 45 mmHg [facility] BASE EXCESS 4(H) -2 - 3 mmol/l [facility] SODIUM 138 138 - 146 mEq/L [facility] PH 7.37 7.35 - 7.45 Unit [facility] PO2 TEMP CORRECT 134(H) 80 - 105 mmHg [facility] O2 SATURATION 99(H) 95 - 98 % [facility] FIO2 35 [facility] PCO2 TEMP CORRECT 54(H) 35 - 45 mmHg [facility] POTASSIUM 3.7 3.5 - 4.9 mEq/L [facility] HEMOGLOBIN POC 11.2 +/-3 g/dL 13.5 - 18.0 g/dL [facility] Arterial blood specimen (specimen) 06/30/2008 8:31 PM CDT 06/30/2008 8:46 PM CDT Angel Luis Gallegos DO POINT OF CARE TESTING COM Mckenzei l Result INTERFACE SYSTEM Refer to clinic/hospital department [facility] CLIA# [id number] [address] [place] [address] * (ABNORMAL) POC GLUCOSE (06/30/2008 5:22 PM CDT) GLUCOSE POC 156(H) 60 - 100 mg/dL [facility] Venous blood specimen (specimen) 06/30/2008 5:22 PM CDT 07/01/2008 7:03 AM CDT Angel Luis Gallegos DO POINT OF CARE TESTING Final Re sult Performing Organization Address [facility] de Phone Number INTERFACE SYSTEM Refer to clinic/hospital department [facility] CLIA# [id number] [address] [place] [address] * (ABNORMAL) POC GLUCOSE (06/30/2008 12:31 PM CDT) GLUCOSE POC 157(H) 60 - 100 mg/dL [facility] Venous blood specimen (specimen) 06/30/2008 12:31 PM CDT 07/01/2008 7:02 AM CDT Angel Luis Gallegos DO POINT OF CARE TESTING Final Re sult Performing Organization Address [facility] de Phone Number INTERFACE SYSTEM Refer to clinic/hospital department [facility] CLIA# [id number] [address] [place] [address] * (ABNORMAL) POC GLUCOSE (06/30/2008 5:01 AM CDT) GLUCOSE POC 162(H) 60 - 100 mg/dL [facility] Venous blood specimen (specimen) 06/30/2008 5:01 AM CDT 06/30/2008 7:01 AM CDT Angel Luis Gallegos DO POINT OF CARE TESTING Final Re sult Performing Organization Address [facility] de Phone Number INTERFACE SYSTEM Refer to clinic/hospital department [facility] CLIA# [id number] [address] [place] [phone] * PHOSPHORUS (06/30/2008 4:08 AM CDT) Pathologist [facility] PHOSPHORUS 3.6 2.5 - 4.6 mg/dL [facility] Blood specimen (specimen) 06/30/2008 4:08 AM CDT 06/30/2008 4:17 AM CDT Angel Luis Gallegos DO CHEMISTRY ORDERABLES Final Res ult Performing Organization Address [facility] Phone Number INTERFACE SYSTEM Refer to clinic/hospital department [facility] CLIA# [id number] [address] [place] [id number] * MAGNESIUM LEVEL (06/30/2008 4:08 AM CDT) [facility] MAGNESIUM 2.2 1.7 - 2.4 mg/dL [facility] Blood specimen (specimen) 06/30/2008 4:08 AM CDT 06/30/2008 4:17 AM CDT Angel Luis Gallegos DO CHEMISTRY ORDERABLES Final Res ult Performing Organization Address [facility] de Phone Number INTERFACE SYSTEM Refer to clinic/hospital department [facility] CLIA# [id number] [address] [place] [id number] * (ABNORMAL) BASIC METABOLIC PANEL (06/30/2008 4:08 AM CDT) OSMOLALITY, CALCULATED 287 275 - 295 mOsm/Kg [facility] POTASSIUM 4.7 3.5 - 5.0 mEq/L [facility] Comment: Specimen moderately hemolyzed CREATININE 0.6(L) 0.7 - 1.5 mg/dL [facility] CALCIUM 10.1 8.4 - 10.5 mg/dL [facility] GLUCOSE 137(H) 70 - 110 mg/dL [facility] CHLORIDE 103 95 - 110 mEq/L [facility] SODIUM 137 136 - 145 mEq/L [facility] ANION GAP 11 9 - 20 mEq/L [facility] BUN 15 9 - 20 mg/dL [facility] CO2 28 22 - 32 mmol/l [facility] Blood specimen (specimen) 06/30/2008 4:08 AM CDT 06/30/2008 4:17 AM CDT us Angel Luis Gallegos DO CHEMISTRY ORDERABLES Final Res ult Performing Organization Address City/State/[facility] Co de Phone Number INTERFACE SYSTEM Refer to clinic/hospital department [facility] CLIA# [id number] [address] [place] [address] * (ABNORMAL) CBC WITH DIFFERENTIAL (06/30/2008 4:08 AM CDT) NEUTROPHILS 75.7(H) 42.2 - 75.2 % [facility] MCH 33.1 27.0 - 34.0 pg [facility] NEUTROPHIL ABSOLUTE 8.0 2.0 - 8.0 K/ul [facility] HEMATOCRIT 32.9(L) 41.0 - 53.0 % [facility] PLATELETS 295 140 - 440 K/ul [facility] EOSINOPHIL ABSOLUTE 0.2 0.0 - 0.7 K/ul [facility] EOSINOPHILS 1.7 0.0 - 7.0 % [facility] RBC 3.38(L) 4.60 - 6.20 Mil/ul [facility] MCHC 34.0 30.0 - 35.0 g/dL [facility] LYMPHOCYTE ABSOLUTE 1.1(L) 1.2 - 4.0 K/ul [facility] LYMPHOCYTES 10.5(L) 24.0 - 44.0 % [facility] MCV 97.3 84.0 - 103.0 Fl [facility] BASOPHILS 0.2 0.0 - 1.0 % [facility] MPV 10.1 8.9 - 12.8 Fl [facility] BASOPHILS ABSOLUTE 0.0 0.0 - 0.2 K/ul [facility] HEMOGLOBIN 11.2(L) 14.0 - 18.0 g/dL [facility] MONOCYTES 11.9(H) 2.0 - 10.0 % [facility] RDW 12.8 11.0 - 14.5 % [facility] MONOCYTE ABSOLUTE 1.3(H) 0.1 - 0.6 K/ul [facility] WBC 10.6 4.5 - 11.0 K/ul [facility] Blood specimen (specimen) 06/30/2008 4:08 AM CDT 06/30/2008 4:17 AM CDT Angel Luis Gallegos DO HEMATOLOGY ORDERABLES Final Re sult Performing Organization Address [facility] Phone Number INTERFACE SYSTEM Refer to clinic/hospital department [facility] CLIA# [id number] [address] [place] [address] * (ABNORMAL) POC GLUCOSE (06/29/2008 11:35 PM CDT) GLUCOSE POC 178(H) 60 - 100 mg/dL [facility] Venous blood specimen (specimen) 06/29/2008 11:35 PM CDT 06/30/2008 7:01 AM CDT Angel Luis Gallegos DO POINT OF CARE TESTING Final Re sult Performing Organization Address [facility] Phone Number INTERFACE SYSTEM Refer to clinic/hospital department [facility] CLIA# [id number] [address] [place] [address] * (ABNORMAL) POC GLUCOSE (06/29/2008 5:26 PM CDT) GLUCOSE POC 169(H) 60 - 100 mg/dL [facility] Venous blood specimen (specimen) 06/29/2008 5:26 PM CDT 06/30/2008 7:01 AM CDT [facility] POINT OF CARE TESTING Final Re sult Performing Organization Address [facility] Phone Number INTERFACE SYSTEM Refer to clinic/hospital department [facility] CLIA# [id number] [address] [place] [address] * (ABNORMAL) POC GLUCOSE (06/29/2008 11:28 AM CDT) GLUCOSE POC 172(H) 60 - 100 mg/dL [facility] Venous blood specimen (specimen) 06/29/2008 11:28 AM CDT 06/30/2008 7:01 AM CDT [facility] POINT OF CARE TESTING Final Re sult Performing Organization Address [facility] Phone Number INTERFACE SYSTEM Refer to clinic/hospital department [facility] CLIA# [id number] [address] [place] [address] * (ABNORMAL) POC ISTAT EG 7+ (06/29/2008 10:44 AM CDT) PH 7.43 7.35 - 7.45 Unit [facility] O2 SATURATION 99(H) 95 - 98 % [facility] PO2 TEMP CORRECT 162(H) 80 - 105 mmHg [facility] SPECIMEN TYPE Arterial [facility] Comment: Test Performed By [id number] Pulse OX: 99 Hemoglobin calculated from Hematocrit result PCO2 TEMP CORRECT 42 35 - 45 mmHg [facility] HEMOGLOBIN POC 11.6 +/-3 g/dL 13.5 - 18.0 g/dL [facility] POTASSIUM 3.8 3.5 - 4.9 mEq/L [facility] PH TEMP CORRECT 7.43 7.35 - 7.45 Unit [facility] HCO3 (CALC) POC 27.8(H) 22.0 - 26.0 mmol/l [facility] TCO2 (CALC) POC 29(H) 23 - 27 mmol/l [facility] FIO2 35 [facility] PO2 162(H) 80 - 105 mmHg [facility] CALCIUM IONIZED 1.19 1.12 - 1.32 mmol/l [facility] HEMATOCRIT ABG 34(L) 38 - 51 % [facility] PCO2 POC 42 35 - 45 mmHg [facility] SODIUM 138 138 - 146 mEq/L [facility] BASE EXCESS 3 -2 - 3 mmol/l [facility] Arterial blood specimen (specimen) 06/29/2008 10:44 AM CDT 06/29/2008 10:46 AM CDT Angel Luis Gallegos DO POINT OF CARE TESTING COM Mckenzie l Result Performing Organization Address City/State/[facility] Co de Phone Number INTERFACE SYSTEM Refer to clinic/hospital department [facility] CLIA# [id number] [address] [place] [address] * XR CHEST PA OR AP (06/29/2008 6:35 AM CDT) Anatomical Region Laterality Modality Chest Other 06/29/2008 6:35 AM CDT Narrative 06/29/2008 10:15 AM CDT Exam: Chest - Portable Date/Time of Exam: Jun 29, 2008 6:35:50 AM History: Please see order comments. Findings: Comparison study is dated 06/28/2008. There is a tracheostomy tube present which has been placed since the prior study. Endotracheal tube has been removed. There is a nasoenteric feeding tube with the tip projecting below the inferior margin of the film. The cardiac silhouette and pulmonary vascularity are within normal limits. There are no consolidations, effusions or areas of significant atelectasis. There is a displaced fracture involving the medial left clavicle unchanged. Summary: 1. Lines and tubes as described. 2. No acute cardiopulmonary disease process. 3. Fracture of the medial left clavicle. - Dictated By: Pop Blanc Jr., M.D. Electronically Signed By: Pop Blanc Jr., M.D. Date Signed: 06/29/08 SDM Procedure Note Pop Blanc Jr. - 06/29/2008 Exam: Chest - Portable Date/Time of Exam: Jun 29, 2008 6:35:50 AM History: Please see order comments. Findings: Comparison study is dated 06/28/2008. There is a tracheostomy tube present which has been placed since the priorstudy. Endotracheal tube has been removed. There is a nasoenteric feeding tube with the tip projectingbelow the inferior margin of the film. The cardiac silhouette and pulmonary vascularity are withinnormal limits. There are no consolidations, effusions or areas of significant atelectasis. There is adisplaced fracture involving the medial left clavicle unchanged. Summary: 1. Lines and tubes as described. 2. No acute cardiopulmonary disease process. 3. Fracture of the medial left clavicle. - Dictated By: Pop Blanc Jr., M.D. Electronically Signed By: Pop Blanc Jr., M.D. Date Signed: 06/29/08 SDM Angel Luis Gallegos DO DIAGNOSTIC IMAGING ORDERABLES Final Result * POC GLUCOSE (06/29/2008 4:58 AM CDT) [facility] GLUCOSE POC 82 60 - 100 mg/dL [facility] Venous blood specimen (specimen) 06/29/2008 4:58 AM CDT 06/29/2008 5:38 AM CDT Angel Luis Gallegos DO POINT OF CARE TESTING Final Re sult INTERFACE SYSTEM Refer to clinic/hospital department [facility] CLIA# [id number] [address] [place] [address] * (ABNORMAL) BASIC METABOLIC PANEL (06/29/2008 3:29 AM CDT) [facility] OSMOLALITY, CALCULATED 290 275 - 295 mOsm/Kg [facility] CREATININE 0.7 0.7 - 1.5 mg/dL [facility] CALCIUM 9.6 8.4 - 10.5 mg/dL [facility] GLUCOSE 136(H) 70 - 110 mg/dL [facility] CHLORIDE 103 95 - 110 mEq/L [facility] ANION GAP 12 9 - 20 mEq/L [facility] SODIUM 141 136 - 145 mEq/L [facility] BUN 8(L) 9 - 20 mg/dL [facility] CO2 30 22 - 32 mmol/l [facility] POTASSIUM 4.0 3.5 - 5.0 mEq/L [facility] Blood specimen (specimen) 06/29/2008 3:29 AM CDT 06/29/2008 3:41 AM CDT Angel Luis Gallegos DO CHEMISTRY ORDERABLES Final Res ult INTERFACE SYSTEM Refer to clinic/hospital department [facility] CLIA# [id number] [address] [place] [address] * (ABNORMAL) CBC WITH DIFFERENTIAL (06/29/2008 3:29 AM CDT) [facility] RBC 3.57(L) 4.60 - 6.20 Mil/ul [facility] MCHC 33.4 30.0 - 35.0 g/dL [facility] LYMPHOCYTE ABSOLUTE 1.0(L) 1.2 - 4.0 K/ul [facility] LYMPHOCYTES 11.2(L) 24.0 - 44.0 % [facility] MCV 98.9 84.0 - 103.0 Fl [facility] BASOPHILS 0.2 0.0 - 1.0 % [facility] MPV 9.8 8.9 - 12.8 Fl [facility] BASOPHILS ABSOLUTE 0.0 0.0 - 0.2 K/ul [facility] HEMOGLOBIN 11.8(L) 14.0 - 18.0 g/dL [facility] MONOCYTES 10.7(H) 2.0 - 10.0 % [facility] RDW 12.9 11.0 - 14.5 % [facility] MONOCYTE ABSOLUTE 1.0(H) 0.1 - 0.6 K/ul [facility] WBC 9.1 4.5 - 11.0 K/ul [facility] NEUTROPHILS 76.5(H) 42.2 - 75.2 % [facility] MCH 33.1 27.0 - 34.0 pg [facility] NEUTROPHIL ABSOLUTE 6.9 2.0 - 8.0 K/ul [facility] HEMATOCRIT 35.3(L) 41.0 - 53.0 % [facility] PLATELETS 243 140 - 440 K/ul [facility] EOSINOPHIL ABSOLUTE 0.1 0.0 - 0.7 K/ul [facility] EOSINOPHILS 1.4 0.0 - 7.0 % [facility] Blood specimen (specimen) 06/29/2008 3:29 AM CDT 06/29/2008 3:41 AM CDT us Angel Luis Gallegos DO HEMATOLOGY ORDERABLES Final Re sult Performing Organization Address City/[facility]/ZIP Co de Phone Number INTERFACE SYSTEM Refer to clinic/hospital department [facility] CLIA# [id number] [address] [place] [address] * (ABNORMAL) POC GLUCOSE (06/28/2008 9:14 PM CDT) GLUCOSE POC 150(H) 60 - 100 mg/dL [facility] Venous blood specimen (specimen) 06/28/2008 9:14 PM CDT 06/29/2008 5:38 AM CDT us Angel Luis Gallegos DO POINT OF CARE TESTING Final Re sult INTERFACE SYSTEM Refer to clinic/hospital department [facility] CLIA# [id number] [address] [place] [address] * (ABNORMAL) POC GLUCOSE (06/28/2008 12:40 PM CDT) GLUCOSE POC 121(H) 60 - 100 mg/dL [facility] Venous blood specimen (specimen) 06/28/2008 12:40 PM CDT 06/29/2008 5:38 AM CDT Angel Luis Gallegos DO POINT OF CARE TESTING Final Re sult INTERFACE SYSTEM Refer to clinic/hospital department [facility] CLIA# [id number] [address] [place] [address] * XR CHEST PA OR AP (06/28/2008 6:26 AM CDT) Anatomical Region Laterality Modality Chest Other 06/28/2008 6:26 AM CDT Narrative 06/28/2008 9:25 AM CDT Exam: Chest - Portable Date/Time of Exam: Jun 28, 2008 6:26:32 AM History: Please see order comments. Findings: Comparison study 06/26/08. Support lines stable in position. Lungs unremarkable. Cardiovascular silhouette within normal limits. Redemonstration of comminuted fracture of proximal left clavicle. Impression: Stable exam. No apparent acute cardiopulmonary disease. Redemonstration of fracture of left clavicle. - Dictated By: Nayeli Cason M.D. Electronically Signed By: Nayeli Cason M.D. Date Signed: 06/28/08 [facility] Procedure Note Nayeli Cason MD - 06/28/2008 Exam: Chest - Portable Date/Time of Exam: Jun 28, 2008 6:26:32 AM History: Please see order comments. Findings: Comparison study 06/26/08. Support lines stable in position.Lungs unremarkable. Cardiovascular silhouette within normal limits. Redemonstration of comminuted fracture ofproximal left clavicle. Impression: Stable exam. No apparent acute cardiopulmonary disease.Redemonstration of fracture of left clavicle. - Dictated By: Nayeli Cason M.D. Electronically Signed By: Nayeli Cason M.D. Date Signed: 06/28/08 [facility] Angel Luis Gallegos DO DIAGNOSTIC IMAGING ORDERABLES Final Result * (ABNORMAL) POC GLUCOSE (06/28/2008 5:08 AM CDT) GLUCOSE POC 108(H) 60 - 100 mg/dL [facility] Venous blood specimen (specimen) 06/28/2008 5:08 AM CDT 06/28/2008 5:28 AM CDT Angel Luis Gallegos DO POINT OF CARE TESTING Final Re sult INTERFACE SYSTEM Refer to clinic/hospital department [facility] CLIA# [id number] [address] [place] [address] * (ABNORMAL) POC ISTAT EG 7+ (06/28/2008 5:06 AM CDT) PH 7.47(H) 7.35 - 7.45 Unit [facility] O2 SATURATION 99(H) 95 - 98 % [facility] PO2 TEMP CORRECT 109(H) 80 - 105 mmHg [facility] SPECIMEN TYPE Arterial [facility] Comment: Test Performed By [id number] PEEP: 05 Pressure Support: 09 Pulse OX: 99 Hemoglobin calculated from Hematocrit result PCO2 TEMP CORRECT 36 35 - 45 mmHg [facility] HEMOGLOBIN POC 10.9 +/-3 g/dL 13.5 - 18.0 g/dL [facility] POTASSIUM 3.6 3.5 - 4.9 mEq/L [facility] PH TEMP CORRECT 7.47(H) 7.35 - 7.45 Unit [facility] HCO3 (CALC) POC 26.0 22.0 - 26.0 mmol/l [facility] TCO2 (CALC) POC 27 23 - 27 mmol/l [facility] FIO2 30 [facility] PO2 109(H) 80 - 105 mmHg [facility] CALCIUM IONIZED 1.25 1.12 - 1.32 mmol/l [facility] HEMATOCRIT ABG 32(L) 38 - 51 % [facility] PCO2 POC 36 35 - 45 mmHg [facility] SODIUM 140 138 - 146 mEq/L [facility] BASE EXCESS 2 -2 - 3 mmol/l [facility] Arterial blood specimen (specimen) 06/28/2008 5:06 AM CDT 06/28/2008 6:16 AM CDT Angel Luis Gallegos DO POINT OF CARE TESTING COM Mckenzie l Result INTERFACE SYSTEM Refer to clinic/hospital department [facility] CLIA# [id number] [address] [place] [address] * (ABNORMAL) BASIC METABOLIC PANEL (06/28/2008 4:15 AM CDT) GLUCOSE 111(H) 70 - 110 mg/dL [facility] CHLORIDE 107 95 - 110 mEq/L [facility] SODIUM 143 136 - 145 mEq/L [facility] ANION GAP 13 9 - 20 mEq/L [facility] BUN 11 9 - 20 mg/dL [facility] CO2 27 22 - 32 mmol/l [facility] OSMOLALITY, CALCULATED 293 275 - 295 mOsm/Kg [facility] POTASSIUM 3.9 3.5 - 5.0 mEq/L [facility] CREATININE 0.6(L) 0.7 - 1.5 mg/dL [facility] CALCIUM 9.7 8.4 - 10.5 mg/dL [facility] Blood specimen (specimen) 06/28/2008 4:15 AM CDT 06/28/2008 4:26 AM CDT us Angel Luis Gallegos DO CHEMISTRY ORDERABLES Final Res ult INTERFACE SYSTEM Refer to clinic/hospital department [facility] CLIA# [id number] [address] [place] [address] * (ABNORMAL) CBC WITH DIFFERENTIAL (06/28/2008 4:15 AM CDT) MCV 98.9 84.0 - 103.0 Fl [facility] MPV 10.4 8.9 - 12.8 Fl [facility] BASOPHILS ABSOLUTE 0.0 0.0 - 0.2 K/ul [facility] BASOPHILS 0.2 0.0 - 1.0 % [facility] HEM COMMENT Smear Reviewed Automated Diff [facility] HEMOGLOBIN 11.7(L) 14.0 - 18.0 g/dL [facility] RDW 13.2 11.0 - 14.5 % [facility] MONOCYTE ABSOLUTE 0.6 0.1 - 0.6 K/ul [facility] MONOCYTES 9.3 2.0 - 10.0 % [facility] WBC 6.5 4.5 - 11.0 K/ul [facility] MCH 33.1 27.0 - 34.0 pg [facility] NEUTROPHIL ABSOLUTE 4.6 2.0 - 8.0 K/ul [facility] NEUTROPHILS 70.8 42.2 - 75.2 % [facility] HEMATOCRIT 35.0(L) 41.0 - 53.0 % [facility] EOSINOPHILS 3.2 0.0 - 7.0 % [facility] PLATELETS 186 140 - 440 K/ul [facility] PERIPHERAL BLOOD SMEAR REVIEW Automated Diff [facility] EOSINOPHIL ABSOLUTE 0.2 0.0 - 0.7 K/ul [facility] RBC 3.54(L) 4.60 - 6.20 Mil/ul [facility] LYMPHOCYTES 16.5(L) 24.0 - 44.0 % [facility] MCHC 33.4 30.0 - 35.0 g/dL [facility] LYMPHOCYTE ABSOLUTE 1.1(L) 1.2 - 4.0 K/ul [facility] Blood specimen (specimen) 06/28/2008 4:15 AM CDT 06/28/2008 4:26 AM CDT Angel Luis Gallegos DO HEMATOLOGY ORDERABLES Final Re sult Performing Organization Address [facility] de Phone Number INTERFACE SYSTEM Refer to clinic/hospital department [facility] CLIA# [id number] [address] [place] [address] * (ABNORMAL) POC GLUCOSE (06/27/2008 11:15 PM CDT) GLUCOSE POC 129(H) 60 - 100 mg/dL [facility] Venous blood specimen (specimen) 06/27/2008 11:15 PM CDT 06/28/2008 5:28 AM CDT Angel Luis Gallegso DO POINT OF CARE TESTING Final Re sult Performing Organization Address [facility] Phone Number INTERFACE SYSTEM Refer to clinic/hospital department [facility] CLIA# [id number] [address] [place] [address] * (ABNORMAL) POC GLUCOSE (06/27/2008 5:07 PM CDT) GLUCOSE POC 129(H) 60 - 100 mg/dL [facility] Venous blood specimen (specimen) 06/27/2008 5:07 PM CDT 06/27/2008 8:54 PM CDT Angel Luis Gallegos DO POINT OF CARE TESTING Final Re sult Performing Organization Address [facility] Phone Number INTERFACE SYSTEM Refer to clinic/hospital department [facility] CLIA# [id number] [address] [place] [address] * (ABNORMAL) POC GLUCOSE (06/27/2008 2:32 PM CDT) GLUCOSE POC 150(H) 60 - 100 mg/dL [facility] Venous blood specimen (specimen) 06/27/2008 2:32 PM CDT 06/27/2008 8:53 PM CDT us Angel Luis Gallegos DO POINT OF CARE TESTING Final Re sult Performing Organization Address [facility] Phone Number INTERFACE SYSTEM Refer to clinic/hospital department [facility] CLIA# [id number] [address] [place] [address] * PHOSPHORUS (06/27/2008 4:25 AM CDT) PHOSPHORUS 3.4 2.5 - 4.6 mg/dL [facility] Blood specimen (specimen) 06/27/2008 4:25 AM CDT 06/27/2008 4:25 AM CDT us Angel Luis Gallegos DO CHEMISTRY ORDERABLES Final Res ult Performing Organization Address [facility] Phone Number INTERFACE SYSTEM Refer to clinic/hospital department [facility] CLIA# [id number] [address] [place] [address] * MAGNESIUM LEVEL (06/27/2008 4:25 AM CDT) MAGNESIUM 1.9 1.7 - 2.4 mg/dL [facility] Blood specimen (specimen) 06/27/2008 4:25 AM CDT 06/27/2008 4:25 AM CDT us Angel Luis Gallegos DO CHEMISTRY ORDERABLES Final Res ult Performing Organization Address [facility] Phone Number INTERFACE SYSTEM Refer to clinic/hospital department [facility] CLIA# [id number] [address] [place] [address] * (ABNORMAL) BASIC METABOLIC PANEL (06/27/2008 4:25 AM CDT) BUN 10 9 - 20 mg/dL [facility] CO2 26 22 - 32 mmol/l [facility] POTASSIUM 3.6 3.5 - 5.0 mEq/L [facility] OSMOLALITY, CALCULATED 292 275 - 295 mOsm/Kg [facility] CREATININE 0.6(L) 0.7 - 1.5 mg/dL [facility] CALCIUM 9.4 8.4 - 10.5 mg/dL [facility] GLUCOSE 137(H) 70 - 110 mg/dL [facility] CHLORIDE 109 95 - 110 mEq/L [facility] ANION GAP 11 9 - 20 mEq/L [facility] SODIUM 142 136 - 145 mEq/L [facility] Blood specimen (specimen) 06/27/2008 4:25 AM CDT 06/27/2008 4:25 AM CDT Angel Luis Gallegos DO CHEMISTRY ORDERABLES Final Res ult INTERFACE SYSTEM Refer to clinic/hospital department [facility] IA# [id number] [address] [place] [address] * (ABNORMAL) CBC WITH DIFFERENTIAL (06/27/2008 4:25 AM CDT) HEMOGLOBIN 10.7(L) 14.0 - 18.0 g/dL [facility] RDW 13.1 11.0 - 14.5 % [facility] MONOCYTE ABSOLUTE 0.4 0.1 - 0.6 K/ul [facility] MONOCYTES 5.5 2.0 - 10.0 % [facility] WBC 6.7 4.5 - 11.0 K/ul [facility] MCH 32.4 27.0 - 34.0 pg [facility] NEUTROPHIL ABSOLUTE 5.1 2.0 - 8.0 K/ul [facility] NEUTROPHILS 75.8(H) 42.2 - 75.2 % [facility] HEMATOCRIT 32.4(L) 41.0 - 53.0 % [facility] EOSINOPHILS 3.0 0.0 - 7.0 % [facility] PLATELETS 200 140 - 440 K/ul [facility] EOSINOPHIL ABSOLUTE 0.2 0.0 - 0.7 K/ul [facility] RBC 3.30(L) 4.60 - 6.20 Mil/ul [facility] LYMPHOCYTES 15.6(L) 24.0 - 44.0 % [facility] MCHC 33.0 30.0 - 35.0 g/dL [facility] LYMPHOCYTE ABSOLUTE 1.0(L) 1.2 - 4.0 K/ul [facility] MCV 98.2 84.0 - 103.0 Fl [facility] MPV 9.8 8.9 - 12.8 Fl [facility] BASOPHILS ABSOLUTE 0.0 0.0 - 0.2 K/ul [facility] BASOPHILS 0.1 0.0 - 1.0 % [facility] Blood specimen (specimen) 06/27/2008 4:25 AM CDT 06/27/2008 4:25 AM CDT Angel Luis Gallegos DO HEMATOLOGY ORDERABLES Final Re sult Performing Organization Address [facility] de Phone Number INTERFACE SYSTEM Refer to clinic/hospital department [facility] CLIA# [id number] [address] [place] [id number] * (ABNORMAL) PHOSPHORUS (06/26/2008 6:15 AM CDT) PHOSPHORUS 1.9(L) 2.5 - 4.6 mg/dL [facility] Blood specimen (specimen) 06/26/2008 6:15 AM CDT 06/26/2008 6:20 AM CDT Angel Luis Gallegos DO CHEMISTRY ORDERABLES Final Res ult Performing Organization Address City/[facility] Co de Phone Number INTERFACE SYSTEM Refer to clinic/hospital department [facility] CLIA# [id number] [address] [place] [address] * MAGNESIUM LEVEL (06/26/2008 6:15 AM CDT) MAGNESIUM 2.2 1.7 - 2.4 mg/dL [facility] Blood specimen (specimen) 06/26/2008 6:15 AM CDT 06/26/2008 6:20 AM CDT Angel Luis Gallegos DO CHEMISTRY ORDERABLES Edited Performing Organization Address [facility] Phone Number INTERFACE SYSTEM Refer to clinic/hospital [facility] CLIA# [id number] [address] [place] [address] * (ABNORMAL) BASIC METABOLIC PANEL (06/26/2008 6:15 AM CDT) SODIUM 140 136 - 145 mEq/L [facility] ANION GAP 9 9 - 20 mEq/L [facility] BUN 9 9 - 20 mg/dL [facility] CO2 28 22 - 32 mmol/l [facility] OSMOLALITY, CALCULATED 287 275 - 295 mOsm/Kg [facility] POTASSIUM 3.7 3.5 - 5.0 mEq/L [facility] CREATININE 0.8 0.7 - 1.5 mg/dL [facility] CALCIUM 8.9 8.4 - 10.5 mg/dL [facility] GLUCOSE 122(H) 70 - 110 mg/dL [facility] CHLORIDE 107 95 - 110 mEq/L [facility] Blood specimen (specimen) 06/26/2008 6:15 AM CDT 06/26/2008 6:20 AM CDT Angel Luis Mackenzie El DO CHEMISTRY ORDERABLES Final Res ult Performing Organization Address [facility] Phone Number INTERFACE SYSTEM Refer to clinic/hospital department [facility] CLIA# [id number] [address] [place] [address] * (ABNORMAL) CBC WITH DIFFERENTIAL (06/26/2008 6:15 AM CDT) MCV 99.4 84.0 - 103.0 Fl [facility] BASOPHILS 0.1 0.0 - 1.0 % [facility] MPV 9.9 8.9 - 12.8 Fl [facility] BASOPHILS ABSOLUTE 0.0 0.0 - 0.2 K/ul [facility] HEMOGLOBIN 12.0(L) 14.0 - 18.0 g/dL [facility] MONOCYTES 3.7 2.0 - 10.0 % [facility] RDW 13.3 11.0 - 14.5 % [facility] MONOCYTE ABSOLUTE 0.4 0.1 - 0.6 K/ul [facility] WBC 11.2(H) 4.5 - 11.0 K/ul [facility] NEUTROPHILS 83.7(H) 42.2 - 75.2 % [facility] MCH 33.6 27.0 - 34.0 pg [facility] NEUTROPHIL ABSOLUTE 9.4(H) 2.0 - 8.0 K/ul [facility] HEMATOCRIT 35.5(L) 41.0 - 53.0 % [facility] PLATELETS 194 140 - 440 K/ul [facility] EOSINOPHIL ABSOLUTE 0.1 0.0 - 0.7 K/ul [facility] EOSINOPHILS 1.1 0.0 - 7.0 % [facility] RBC 3.57(L) 4.60 - 6.20 Mil/ul [facility] MCHC 33.8 30.0 - 35.0 g/dL [facility] LYMPHOCYTE ABSOLUTE 1.3 1.2 - 4.0 K/ul [facility] LYMPHOCYTES 11.4(L) 24.0 - 44.0 % [facility] Blood specimen (specimen) 06/26/2008 6:15 AM CDT 06/26/2008 6:20 AM CDT Angel Luis Gallegos DO HEMATOLOGY ORDERABLES Final Re sult INTERFACE SYSTEM Refer to clinic/hospital department [facility] CLIA# [id number] [address] [place] [address] * XR CHEST PA OR AP (06/26/2008 5:27 AM CDT) Anatomical Region Laterality Modality Chest Other 06/26/2008 5:27 AM CDT Narrative 06/28/2008 4:48 PM CDT Exam: Chest - Portable Date/Time of Exam: Jun 26, 2008 5:27:42 AM History: Please see order comments. Comparisons: 06/25/2008 at 0606. Findings: Heart size and mediastinal silhouette appear within normal limits. Endotracheal tube and a radiopaque feeding tube are again identified stable. Lungs are clear without evidence for effusion, edema, or infiltrates. No evidence for pneumothorax. Osseous structures appear within normal limits. Impressions: 1. No acute cardiopulmonary disease. 2. Support tubes and lines are stable. - Dictated By: Lg Weeks M.D., Ph.D. Electronically Signed By: Lg Weeks M.D., Ph.D. Date Signed: 06/28/08 SDM Procedure Note Lg Weeks - 06/28/2008 Exam: Chest - Portable Date/Time of Exam: Jun 26, 2008 5:27:42 AM History: Please see order comments. Comparisons: 06/25/2008 at 0606. Findings: Heart size and mediastinal silhouette appear within normallimits. Endotracheal tube and a radiopaque feeding tube are again identified stable. Lungs are clearwithout evidence for effusion, edema, or infiltrates. No evidence for pneumothorax. Osseous structuresappear within normal limits. Impressions: 1. No acute cardiopulmonary disease. 2. Support tubes and lines are stable. - Dictated By: Lg Weeks M.D., Ph.D. Electronically Signed By: Lg Weeks M.D., Ph.D. Date Signed: 06/28/08 SDM Angel Luis Gallegos DO DIAGNOSTIC IMAGING ORDERABLES Final Result * (ABNORMAL) POC ISTAT EG 7+ (06/26/2008 5:01 AM CDT) BASE EXCESS 0 -2 - 3 mmol/l [facility] SODIUM 139 138 - 146 mEq/L [facility] PH 7.42 7.35 - 7.45 Unit [facility] PO2 TEMP CORRECT 128(H) 80 - 105 mmHg [facility] O2 SATURATION 99(H) 95 - 98 % [facility] SPECIMEN TYPE Arterial [facility] Comment: Test Performed By [id number] Tidal volume: 600 PEEP: 05 Rate: 12 Pulse OX: 100 Hemoglobin calculated from Hematocrit result PCO2 TEMP CORRECT 37 35 - 45 mmHg [facility] HEMOGLOBIN POC 11.6 +/-3 g/dL 13.5 - 18.0 g/dL [facility] POTASSIUM 3.6 3.5 - 4.9 mEq/L [facility] PH TEMP CORRECT 7.42 7.35 - 7.45 Unit [facility] HCO3 (CALC) POC 24.0 22.0 - 26.0 mmol/l [facility] TCO2 (CALC) POC 25 23 - 27 mmol/l [facility] FIO2 30 [facility] PO2 128(H) 80 - 105 mmHg [facility] HEMATOCRIT ABG 34(L) 38 - 51 % [facility] CALCIUM IONIZED 1.16 1.12 - 1.32 mmol/l [facility] PCO2 POC 37 35 - 45 mmHg [facility] Arterial blood specimen (specimen) 06/26/2008 5:01 AM CDT 06/26/2008 6:18 AM CDT Angel Luis Gallegos DO POINT OF CARE TESTING COM Mckenzie l Result INTERFACE SYSTEM Refer to clinic/hospital department [facility] CLIA# [id number] [address] [place] [address] * XR CHEST PA OR AP (06/25/2008 6:34 AM CDT) Anatomical Region Laterality Modality Chest Other 06/25/2008 6:34 AM CDT Narrative 06/25/2008 8:05 PM CDT Exam: Chest - Portable Date/Time of Exam: Jun 25, 2008 6:34:23 AM History: Please see order comments. Comparisons: 06/24/2008 at 0534. Findings: Heart size and mediastinal silhouette appear within normal limits. Endotracheal tube and a radiopaque feeding tube are again identified stable. Heart size appears within normal limits. Lungs are clear without evidence for effusion, edema or infiltrates. No evidence for pneumothorax. Osseous structures appear within normal limits. Impressions: 1. No acute cardiopulmonary disease. 2. Support tubes and lines are stable. - Dictated By: Lg Weeks M.D., Ph.D. Electronically Signed By: Lg Weeks M.D., Ph.D. Date Signed: 06/25/08 Procedure Note Lg Weeks - 06/25/2008 Exam: Chest - Portable Date/Time of Exam: Jun 25, 2008 6:34:23 AM History: Please see order comments. Comparisons: 06/24/2008 at 0534. Findings: Heart size and mediastinal silhouette appear within normallimits. Endotracheal tube and a radiopaque feeding tube are again identified stable. Heart size appearswithin normal limits. Lungs are clear without evidence for effusion, edema or infiltrates. No evidence forpneumothorax. Osseous structures appear within normal limits. Impressions: 1. No acute cardiopulmonary disease. 2. Support tubes and lines are stable. - Dictated By: Lg Weeks M.D., Ph.D. Electronically Signed By: Lg Weeks M.D., Ph.D. Date Signed: 06/25/08 Angel Luis Gallegos DO DIAGNOSTIC IMAGING ORDERABLES Final Result * (ABNORMAL) BASIC METABOLIC PANEL (06/25/2008 5:00 AM CDT) SODIUM 139 136 - 145 mEq/L [facility] ANION GAP 12 9 - 20 mEq/L [facility] BUN 7(L) 9 - 20 mg/dL [facility] CO2 27 22 - 32 mmol/l [facility] OSMOLALITY, CALCULATED 286 275 - 295 mOsm/Kg [facility] POTASSIUM 3.9 3.5 - 5.0 mEq/L [facility] CREATININE 0.8 0.7 - 1.5 mg/dL [facility] CALCIUM 9.3 8.4 - 10.5 mg/dL [facility] GLUCOSE 130(H) 70 - 110 mg/dL [facility] CHLORIDE 104 95 - 110 mEq/L [facility] Blood specimen (specimen) 06/25/2008 5:00 AM CDT 06/25/2008 5:00 AM CDT us Angel Luis Gallegos DO CHEMISTRY ORDERABLES Final Res ult INTERFACE SYSTEM Refer to clinic/hospital department [facility] CLIA# [id number] [address] [place] [address] * (ABNORMAL) CBC WITH DIFFERENTIAL (06/25/2008 5:00 AM CDT) EOSINOPHIL ABSOLUTE 0.0 0.0 - 0.7 K/ul [facility] EOSINOPHILS 0.2 0.0 - 7.0 % [facility] RBC 4.09(L) 4.60 - 6.20 Mil/ul [facility] MCHC 33.5 30.0 - 35.0 g/dL [facility] LYMPHOCYTE ABSOLUTE 1.2 1.2 - 4.0 K/ul [facility] LYMPHOCYTES 9.4(L) 24.0 - 44.0 % [facility] MCV 99.3 84.0 - 103.0 Fl [facility] BASOPHILS 0.1 0.0 - 1.0 % [facility] MPV 9.6 8.9 - 12.8 Fl [facility] BASOPHILS ABSOLUTE 0.0 0.0 - 0.2 K/ul [facility] HEMOGLOBIN 13.6(L) 14.0 - 18.0 g/dL [facility] MONOCYTES 5.0 2.0 - 10.0 % [facility] RDW 13.5 11.0 - 14.5 % [facility] MONOCYTE ABSOLUTE 0.6 0.1 - 0.6 K/ul [facility] WBC 12.4(H) 4.5 - 11.0 K/ul [facility] NEUTROPHILS 85.3(H) 42.2 - 75.2 % [facility] MCH 33.3 27.0 - 34.0 pg [facility] NEUTROPHIL ABSOLUTE 10.6(H) 2.0 - 8.0 K/ul [facility] HEMATOCRIT 40.6(L) 41.0 - 53.0 % [facility] PLATELETS 228 140 - 440 K/ul [facility] Blood specimen (specimen) 06/25/2008 5:00 AM CDT 06/25/2008 5:00 AM CDT Angel Luis Gallegos DO HEMATOLOGY ORDERABLES Final Re sult INTERFACE SYSTEM Refer to clinic/hospital department [facility] CLIA# [id number] [address] [place] [address] * (ABNORMAL) POC ISTAT EG 7+ (06/25/2008 4:44 AM CDT) PH TEMP CORRECT 7.51(H) 7.35 - 7.45 Unit [facility] TCO2 (CALC) POC 25 23 - 27 mmol/l [facility] HCO3 (CALC) POC 23.8 22.0 - 26.0 mmol/l [facility] FIO2 30 [facility] HEMATOCRIT ABG 37(L) 38 - 51 % [facility] PO2 125(H) 80 - 105 mmHg [facility] CALCIUM IONIZED 1.18 1.12 - 1.32 mmol/l [facility] PCO2 POC 30(L) 35 - 45 mmHg [facility] BASE EXCESS 1 -2 - 3 mmol/l [facility] SODIUM 136(L) 138 - 146 mEq/L [facility] PH 7.51(H) 7.35 - 7.45 Unit [facility] PO2 TEMP CORRECT 125(H) 80 - 105 mmHg [facility] O2 SATURATION 99(H) 95 - 98 % [facility] SPECIMEN TYPE Arterial [facility] Comment: Test Performed By [id number] Tidal volume: 600 PEEP: 05 Rate: 14 Pulse OX: 100 Hemoglobin calculated from Hematocrit result PCO2 TEMP CORRECT 30(L) 35 - 45 mmHg [facility] POTASSIUM 3.5 3.5 - 4.9 mEq/L [facility] HEMOGLOBIN POC 12.6 +/-3 g/dL 13.5 - 18.0 g/dL [facility] Arterial blood specimen (specimen) 06/25/2008 4:44 AM CDT 06/25/2008 6:11 AM CDT Angel Luis Gallegos DO POINT OF CARE TESTING COM Mckenzie l Result INTERFACE SYSTEM Refer to clinic/hospital department [facility]# [id number] [address] [place] [phone] * XR ABDOMEN FOR FEEDING TUBE (06/25/2008 1:29 AM CDT) Anatomical Region Laterality Modality Abdomen Other 06/25/2008 1:29 AM CDT Narrative 06/25/2008 8:05 PM CDT Exam: Tube Placement (Feeding/NG) Date/Time of Exam: Jun 25, 2008 1:29:59 AM History: Check tube placement. Comparisons: 06/24/2008 at 2138. Findings: The radiopaque feeding tube noted on prior examination has been advanced with metallic tip overlying the second duodenum. Bowel gas pattern is nonspecific. - Dictated By: Lg Weeks M.D., Ph.D. Electronically Signed By: Lg Weeks M.D., Ph.D. Date Signed: 06/25/08 Procedure Note Lg Weeks - 06/25/2008 Exam: Tube Placement (Feeding/NG) Date/Time of Exam: Jun 25, 2008 1:29:59 AM History: Check tube placement. Comparisons: 06/24/2008 at 2138. Findings: The radiopaque feeding tube noted on prior examination has beenadvanced with metallic tip overlying the second duodenum. Bowel gas pattern is nonspecific. - Dictated By: Lg Weeks M.D., Ph.D. Electronically Signed By: Lg Weeks M.D., Ph.D. Date Signed: 06/25/08 [facility] [place] S El DO DIAGNOSTIC IMAGING ORDERABLES Final Result * XR ABDOMEN FOR FEEDING TUBE (06/24/2008 9:46 PM CDT) Anatomical Region Laterality Modality Abdomen Other 06/24/2008 9:46 PM CDT Narrative 06/27/2008 8:30 AM CDT Exam: Tube Placement (Feeding/NG) Date/Time of Exam: Jun 24, 2008 9:46:18 PM History: Check tube placement. Findings: A metallic tip of a nasogastric feeding tube lies in the body of the stomach. - Dictated By: Lucia Walsh MD Electronically Signed By: Lucia Walsh MD Date Signed: 06/27/08 AMA Procedure Note Lucia Walsh - 06/27/2008 Exam: Tube Placement (Feeding/NG) Date/Time of Exam: Jun 24, 2008 9:46:18 PM History: Check tube placement. Findings: A metallic tip of a nasogastric feeding tube lies in the bodyof the stomach. - Dictated By: Lucia Walsh MD Electronically Signed By: Lucia Walsh MD Date Signed: 06/27/08 AMA Angel Luis S El DO DIAGNOSTIC IMAGING ORDERABLES Final Result * XR ABDOMEN FOR FEEDING TUBE (06/24/2008 6:05 PM CDT) Anatomical Region Laterality Modality Abdomen Other 06/24/2008 6:05 PM CDT Narrative 06/27/2008 8:28 AM CDT Exam: Tube Placement (Feeding/NG) Date/Time of Exam: Jun 24, 2008 6:05:02 PM History: Check tube placement. Findings: Comparison dated 06/24/2008 at 1205 hours. A metallic tipped feeding tube lies within the region of the body/antrum of the stomach. The tube appears to be kinked at its juncture with the metallic marker. Position is satisfactory. - Dictated By: Lucia Walsh MD Electronically Signed By: Lucia Walsh MD Date Signed: 06/27/08 JAW Procedure Note Lucia Walsh - 06/27/2008 Exam: Tube Placement (Feeding/NG) Date/Time of Exam: Jun 24, 2008 6:05:02 PM History: Check tube placement. Findings: Comparison dated 06/24/2008 at 1205 hours. A metallic tippedfeeding tube lies within the region of the body/antrum of the stomach. The tube appears to be kinked atits juncture with the metallic marker. Position is satisfactory. - Dictated By: Lucia Walsh MD Electronically Signed By: Lucia Walsh MD Date Signed: 06/27/08 [facility] Angel Luis Gallegos DO DIAGNOSTIC IMAGING ORDERABLES Final Result * XR ABDOMEN FOR FEEDING TUBE (06/24/2008 12:20 PM CDT) Anatomical Region Laterality Modality Abdomen Other 06/24/2008 12:2 0 PM CDT Narrative 06/24/2008 1:08 PM CDT Exam: Tube Placement (Feeding/NG) Date/Time of Exam: Jun 24, 2008 12:20:27 PM History: Check tube placement. Findings: Comparison chest x-ray is dated 06/24/2008. There is a nasoenteric feeding tube with the tip projecting over the proximal stomach. There is an unremarkable bowel gas pattern. Summary: The nasoenteric feeding tube tip projects over the proximal stomach. - Dictated By: Pop Blanc Jr., M.D. Electronically Signed By: Pop Blanc Jr., M.D. Date Signed: 06/24/08 Procedure Note Pop Blanc Jr. - 06/24/2008 Exam: Tube Placement (Feeding/NG) Date/Time of Exam: Jun 24, 2008 12:20:27 PM History: Check tube placement. Findings: Comparison chest x-ray is dated 06/24/2008. There is a nasoenteric feeding tube with the tip projecting over theproximal stomach. There is an unremarkable bowel gas pattern. Summary: The nasoenteric feeding tube tip projects over the proximalstomach. - Dictated By: Pop Blanc Jr., M.D. Electronically Signed By: Pop Blanc Jr., M.D. Date Signed: 06/24/08 Angel Luis Gallegos DO DIAGNOSTIC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
--- NOTE | 2025-06-03 15:59 | ED_ITS ---
HPI - Skin/Abscess/Foreign Bdy General: Chief complaint: Skin/Abscess/Foreign Body Stated complaint: rash (14xdays) Time Seen by Provider: 06/03/25 15:40 Source: patient and family Mode of arrival: ambulatory Limitations: no limitations History of Present Illness: Patient is a 59-year-old male who presents to ED today for complaint of an extremely pruritic rash. Patient states he was seen a month ago for a scalp rash and prescribed ketoconazole. Patient states after using this medication he began to breakout and a rash to his torso and arms. He states in the past he has been prescribed topical steroids and mupirocin ointment as well as a prednisone taper which did seem to help but as soon as he stopped these medications, the rash returned. He is requesting refills of those medications. Rash has been present over the past 2 weeks. MD complaint: rash Onset (ago): week(s) Tetanus up to date: yes Location: generalized Severity: moderate Quality: burning and other (itchy) Relieving factors: other (Steroids) Exacerbating factors: none Context: none Associated symptoms: Reports itching; Deny chills, fever(s), nausea or vomiting Treatments prior to arrival: corticosteroid and antibiotic Related Data Previous Rx's ?Medication ?Instructions ?Recorded quetiapine 100 mg tablet 100 mg PO BID Mental health #180 12/02/24 tabs ketoconazole 2 % shampoo 1 applic topical .COMPLEX #1 20 mL 05/04/25 levothyroxine 25 mcg tablet 25 mcg PO DAILY #90 tabs 0 05/05/25 clobetasol 0.05 % topical cream 1 applic topical BID 2 weeks #60 06/03/25 grams mupirocin 2 % topical ointment 1 applic topical BID #2 2 grams 06/03/25 (Centany) prednisone 10 mg tablet 10 mg PO DAILY 5 days #14 ta bs 06/03/25 Allergies Allergy/AdvReac Type Severity Reaction Status Date / Time No Known Allergies Allergy Verified 05/27/25 15:50 Review of Systems Const: Denies: fever(s), chills, body aches, fatigue or malaise ENMT: Denies: throat pain, odynophagia, nasal discharge, nasal congestion or sinus pain Card: Denies: chest pain Resp: Denies: dyspnea GI: Denies: nausea or vomiting Musc: Denies: neck pain, back pain, extremity pain or joint swelling Skin/Breast: Reports: rash, pruritus and erythema Neuro: Denies: headache(s) or numbness in extremities PFSH ED PFSH: Medical History Difficulty communicating as sequela of tracheotomy Loss of teeth due to extraction Weight loss, non-intentional Hypothyroidism (acquired) Diabetes type 2, controlled Prediabetes converted to diabetes with hemoglobin A1c 6.3 on 10/31/2023 Elevated procalcitonin Anemia in chronic renal disease Chronic kidney disease (CKD), stage III (moderate) Acute kidney injury Traumatic brain injury MDD (major depressive disorder) Social History Smoking and tobacco/nicotine status: never used tobacco/nicotine Alcohol intake: former Substance/Drug Use: never Adopted: No Caregiver/support person: No Lives independently: Yes Current occupational status: disabled Current gender identity: Male Physical Exam Const: COMMON NORMALS: no acute distress, average body habitus, patient oriented x3, no limitations and alert GENERAL APPEARANCE: cooperative and disheveled ORIENTATION/CONSCIOUSNESS: Yes awake, Yes oriented to person, Yes oriented to place and Yes oriented to time HENMT: COMMON NORMALS: normocephalic and atraumatic HEAD & SCALP: normocephalic, atraumatic and other (scalp dermatitis) FACE & SINUS: normal facial exam Eye: GENERAL EYE: appearance normal, both eyes and all related structures Neck/C-Spine: COMMON NORMALS: no lymphadenopathy Resp: COMMON NORMALS: normal respiratory effort and clear to auscultation bilaterally AUSCULTATION: clear to auscultation bilaterally Cardio: COMMON NORMALS: regular rate and regular rhythm RATE: regular rate RHYTHM: regular rhythm Extremity: GENERAL: Yes normal exam except as noted Neuro: COMMON NORMALS: patient oriented x3 SENSORIUM/ORIENTATION: Yes alert, Yes oriented to person, Yes oriented to place and Yes oriented to time Skin: NARRATIVE SKIN EXAM: pt has erythematous significantly excoriated rash to scalp, bilateral UEs, torso-rash seems to consist of large erythematous plaques with multiple excoriated papules; legs are covered but he states rash does not seem to affect legs, groin, buttocks RASHES: rashes noted Course Vital Signs: Vital signs: Vital Signs Temperature 98.2 F 06/03/25 15:39 Pulse Rate 93 06/03/25 16:05 Respiratory Rate 19 H 06/03/25 15:39 Blood Pressure 136/84 06/03/25 16:05 Pulse Oximetry 98 06/03/25 16:05 Oxygen Delivery Me thod Room Air 06/03/25 16:05 MDM - Skin/Abscess/Foreign Bdy Medicial Decision Making I think at this point, as patient has had multiple medical evaluations, the most appropriate action would be referral to dermatology for definitive diagnosis and treatment. He is requesting refills of the medications that have worked in the past thus these will be provided for symptomatic relief until he can get into dermatology. Medical Records I reviewed the patient's medical records. No radiology studies performed this visit Discharge Plan Discharge Patient Disposition: Home Clinical Impression: Dermatitis Condition: Stable Prescriptions: New prednisone 10 mg tablet 10 mg PO DAILY 5 Days Qty: 14 0RF Rx Instructions: Take 4 tabs on day 1-2, 3 tabs on day 3, 2 tabs on day 4, 1 tab on day 5 Continued clobetasol 0.05 % cream 1 applic topical BID 14 Days Qty: 60 0RF mupirocin [Centany] 2 % ointment 1 applic topical BID Qty: 22 0RF Discontinued prednisone 20 mg tablet 20 mg PO DAILY 12 Days Qty: 15 0RF Rx Instructions: 40mg(2tabs)poqd for 3d, 30mg(1.5tabs)poqd for3d, 20mg(1 tab)poqd for3d, 10mg(0.5mg)poqd for3d No Action ketoconazole 2 % shampoo 1 applic topical .COMPLEX Qty: 120 0RF Rx Instructions: 1 applic topically apply twice weekly x 4 weeks then once weekly; quetiapine 100 mg tablet 100 mg PO BID Qty: 180 1RF levothyroxine 25 mcg tablet 25 mcg PO DAILY Qty: 90 1RF Discharge Orders: Discharge ED (Routine); Ordered 06/03/25 Ordered By: Mily Tai Referrals: West Shah MD [Primary Care Provider, Family Practice] Patient Instructions: Patient Portal & [facility] Instructions Activity Restrictions/Additional Instructions: As we discussed, we will place a case management referral to try to get you set up with our dermatology team for further evaluation and treatment of your rash as it does not seem to be improving or going away. 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
[2025-06-03 16:05] VITALS: BP 136/84; PULSE 93; O2SAT 98
[2025-06-03 16:23] VITALS: BP 138/84; PULSE 91; O2SAT 99
--- NOTE | 2025-06-03 17:41 | DCPLANNER ---
messaged derm for er f/u
== END 2025-06-03 16:24 | disposition home or self-care (01) ==
PROVIDERS: Emergency Provider Physician Assistant; PCP Family Medicine
DX: L30.9 Dermatitis, unspecified (principal); Z87.820 Personal history of traumatic brain injury; E11.22 Type 2 diabetes mellitus with diabetic chronic kidney disease; N18.30 Chronic kidney disease, stage 3 unspecified
CPT/HCPCS: 99283